=== PATIENT | female | born 1990 | race Caucasian/White ===

== ENCOUNTER → 2016-08-10 | Outpatient (REF) | payer OTHER ==
[~2016-08-10] MED LIST: ACET50TA PO; ANUS2.5C2 TOP; APRI0.37 PO; CIPR500T89 PO; DOCU10ELUD PO; EUCECRE3 TOP; FLAG500T PO; IBUP600T26 PO; MEDR1VL IM; MILKSUS OR; MOM30SS PO; NORCOTAB PO; PRED10TA PO
[2016-08-10 16:04] LABS: ALBUMIN 3.6 GM/DL (3.2-5.2); ALBUMIN/GLOBULIN RATIO 1.03 (1.00-1.93); ALKALINE PHOSPHATASE 56 U/L (45-117); ALT/SGPT 15 U/L (12-78); ANION GAP 10 MEQ/L (8-16); AST/SGOT 12 U/L (15-37); BILIRUBIN,TOTAL 0.2 MG/DL (0.2-1.0); BLOOD UREA NITROGEN 14 MG/DL (7-18); CALCIUM LEVEL 8.3 MG/DL (8.5-10.1); CARBON DIOXIDE LEVEL 23 MEQ/L (21-32); CHLORIDE LEVEL 108 MEQ/L (98-107); CREATININE FOR GFR 0.72 MG/DL (0.55-1.02); GLOMERULAR FILTRATION RATE > 60.0 (>60); GLUCOSE, FASTING 102 MG/DL (70-105); POTASSIUM SERUM 3.7 MEQ/L (3.5-5.1); SODIUM LEVEL 141 MEQ/L (136-145); TOTAL PROTEIN 7.1 GM/DL (6.4-8.2)
[2016-08-10 16:05] LABS: MEAN CORPUSCULAR HEMOGLOBIN 31.3 pg (27.0-33.0); MEAN CORPUSCULAR HGB CONC 33.6 g/dl (32.0-36.5); RED CELL DISTRIBUTION WIDTH 12.6 % (11.5-14.5); WHITE BLOOD COUNT 8.2 K/mm3 (4.0-10.0)
== END ==
LOC: M LABDRAW1 15:36
PROVIDERS: ATTEND Internal Medicine Gastroenterology
DX: K51.90 Ulcerative colitis, unspecified, without complications (principal); K60.2 Anal fissure, unspecified; D64.9 Anemia, unspecified; K59.1 Functional diarrhea; Z80.0 Family history of malignant neoplasm of digestive organs; M19.93 Secondary osteoarthritis, unspecified site

== ENCOUNTER 2016-10-02 13:51 | Emergency (ER) | payer OTHER ==
[~2016-10-02] VITALS: Ht 157.5 cm; Wt 85.3 kg
[~2016-10-02 13:51] MED LIST changes: +CIPR-249 PO; -CIPR500T89 PO
[2016-10-02 13:52] VITALS: BP 123/74
[2016-10-02] MEDS ORDERED: CYCL10TA PO (14:38)
[2016-10-02] MEDS ORDERED: IBUP80TA PO (14:38)
== END 2016-10-02 14:52 | disposition home or self-care (01) ==
LOC: M ED 13:51
DX: S16.1XXA Strain of muscle, fascia and tendon at neck level, initial encounter (principal); M43.6 Torticollis; X58.XXXA Exposure to other specified factors, initial encounter; Y92.9 Unspecified place or not applicable; Y93.9 Activity, unspecified; Y99.9 Unspecified external cause status; Z79.3 Long term (current) use of hormonal contraceptives

== ENCOUNTER 2017-05-03 09:24 | Emergency (ER) | payer OTHER ==
[2017-05-03 10:24] LABS: BASO # 0.1 10^3/uL (0.0-0.2); BASO % 0.4 % (0.0-1.0); EOS # 0.2 10^3/uL (0.0-0.50); EOS % 1.1 % (0.0-3.0); HEMATOCRIT 39.7 % (36.0-47.0); HEMOGLOBIN 13.2 g/dl (12.0-16.0); IMMATURE GRANULOCYTE % 0.3 % (0-0); LYMPH # 1.9 10^3/uL (1.5-6.5); LYMPH % 13.8 % (24.0-44.0); MEAN CORPUSCULAR HEMOGLOBIN 30.3 pg (27.0-33.0); MEAN CORPUSCULAR HGB CONC 33.2 g/dl (32.0-36.5); MEAN CORPUSCULAR VOLUME 91.3 fl (80.0-96.0); MONO # 0.7 10^3/uL (0.0-0.8); MONO % 5.3 % (0.0-5.0); NEUTROPHILS # 10.9 10^3/uL (1.8-7.7); NEUTROPHILS % 79.1 % (36.0-66.0); PLATELET COUNT, AUTOMATED 233 10^3/uL (150-450); RED BLOOD COUNT 4.35 10^6/uL (4.00-5.40); RED CELL DISTRIBUTION WIDTH 12.8 % (11.5-14.5); WHITE BLOOD COUNT 13.8 10^3/uL (4.0-10.0)
[2017-05-03 11:15] LABS: HCG, SERUM QUANTITATIVE 10515 MIU/ML
[2017-05-03 11:26] LABS: KETONE, URINE AUTO RFX NEGATIVE (NEGATIVE); LEUKOCYTE ESTERASE UR AUTO RFX 1+ (NEGATIVE); MUCUS, URINE RFX SMALL (NEGATIVE); NITRITE, URINE AUTO RFX NEGATIVE (NEGATIVE); RBC, URINE AUTO RFX 5 /HPF (0-3); SPECIFIC GRAVITY UR AUTO RFX 1.023 (1.002-1.035); SQUAM EPITHELIAL CELL UR AURFX 5 /HPF (0-6); WBC, URINE AUTO RFX 2 /HPF (0-3)
== END 2017-05-03 12:54 | disposition home or self-care (01) ==
LOC: M ED 09:24
DX: O20.8 Other hemorrhage in early pregnancy (principal); Z3A.01 Less than 8 weeks gestation of pregnancy
CPT/HCPCS: 76801

== ENCOUNTER 2017-05-06 13:12 | Emergency (ER) | payer OTHER | END 2017-05-06 15:56 | disposition home or self-care (01) | LOC: M ED 13:12 | DX: J02.0 Streptococcal pharyngitis (principal); Z20.9 Contact with and (suspected) exposure to unspecified communicable disease; K52.9 Noninfective gastroenteritis and colitis, unspecified; K50.919 Crohn's disease, unspecified, with unspecified complications | CPT/HCPCS: 87880 ==

== ENCOUNTER → 2017-05-14 | Outpatient (REF) | payer OTHER ==
[2017-05-14 13:24] LABS: HEMATOCRIT 36.9 % (36.0-47.0); HEMOGLOBIN 12.4 g/dl (12.0-16.0); MEAN CORPUSCULAR HEMOGLOBIN 30.3 pg (27.0-33.0); MEAN CORPUSCULAR HGB CONC 33.6 g/dl (32.0-36.5); MEAN CORPUSCULAR VOLUME 90.2 fl (80.0-96.0); PLATELET COUNT, AUTOMATED 247 10^3/uL (150-450); RED BLOOD COUNT 4.09 10^6/uL (4.00-5.40); RED CELL DISTRIBUTION WIDTH 12.4 % (11.5-14.5); WHITE BLOOD COUNT 9.2 10^3/uL (4.0-10.0)
[2017-05-14 14:13] LABS: RUBELLA IgG QUALITATIVE IMMUNE (IMMUNE)
[2017-05-14 14:14] LABS: HEPATITIS B SURFACE ANTIGEN NEGATIVE (NEGATIVE)
[2017-05-14 14:42] LABS: HIV 1&2 SCREEN CENTAUR NEGATIVE (NEGATIVE)
[2017-05-14 14:46] LABS: CHLAMYDIA DNA AMPLIFICATION POSITIVE (NEGATIVE); GC DNA AMPLIFICATION NEGATIVE (NEGATIVE)
[2017-05-14 15:32] LABS: HCG, SERUM QUANTITATIVE 45079 MIU/ML
== END ==
LOC: M LAB REF 13:03
DX: Z3A.01 Less than 8 weeks gestation of pregnancy (principal)

== ENCOUNTER 2017-07-24 11:55 | Emergency (ER) | payer OTHER ==
[2017-07-24 12:49] LABS: BASO % 0.2 % (0.0-1.0); EOS # 0.1 10^3/uL (0.0-0.50); EOS % 1.4 % (0.0-3.0); HEMATOCRIT 36.2 % (36.0-47.0); HEMOGLOBIN 12.2 g/dl (12.0-15.5); IMMATURE GRANULOCYTE % 0.5 % (0-3.0); LYMPH # 1.6 10^3/uL (1.5-6.5); LYMPH % 17.6 % (24.0-44.0); MEAN CORPUSCULAR HEMOGLOBIN 30.7 pg (27.0-33.0); MEAN CORPUSCULAR HGB CONC 33.7 g/dl (32.0-36.5); MONO # 0.8 10^3/uL (0.0-0.8); MONO % 8.3 % (0.0-5.0); NEUTROPHILS # 6.6 10^3/uL (1.8-7.7); PLATELET COUNT, AUTOMATED 212 10^3/uL (150-450); RED BLOOD COUNT 3.98 10^6/uL (4.00-5.40); RED CELL DISTRIBUTION WIDTH 13.2 % (11.5-14.5); WHITE BLOOD COUNT 9.2 10^3/uL (4.0-10.0)
[2017-07-24] MEDS: ONDANSETRON 4MG/2ML VIAL (J2405) IV (12:49)
[2017-07-24] MEDS: NS 1,000 ML IV (12:49)
[2017-07-24 12:58] LABS: KETONE, URINE AUTO RFX 1+ mg/dL (NEGATIVE); MUCUS, URINE RFX SMALL (NEGATIVE); NITRITE, URINE AUTO RFX NEGATIVE (NEGATIVE); RBC, URINE AUTO RFX 3 /HPF (0-3); SPECIFIC GRAVITY UR AUTO RFX 1.013 (1.002-1.035); SQUAM EPITHELIAL CELL UR AURFX 6 /HPF (0-6); WBC, URINE AUTO RFX 1 /HPF (0-3)
[2017-07-24 13:01] LABS: LEUKOCYTE ESTERASE UR AUTO RFX 1+ (NEGATIVE)
[2017-07-24 13:08] LABS: ALBUMIN/GLOBULIN RATIO 0.67 (1.00-1.93); ALKALINE PHOSPHATASE 40 U/L (45-117); ALT/SGPT 12 U/L (12-78); ANION GAP 8 MEQ/L (8-16); AST/SGOT 13 U/L (7-37); BILIRUBIN,DIRECT < 0.1 MG/DL (0.0-0.2); BILIRUBIN,TOTAL 0.3 MG/DL (0.2-1.0); BLOOD UREA NITROGEN 4 MG/DL (7-18); CALCIUM LEVEL 8.7 MG/DL (8.5-10.1); CARBON DIOXIDE LEVEL 25 MEQ/L (21-32); CHLORIDE LEVEL 106 MEQ/L (98-107); CREATININE FOR GFR 0.51 MG/DL (0.55-1.30); GLOMERULAR FILTRATION RATE > 60.0 (>60); GLUCOSE, FASTING 84 MG/DL (70-100); LIPASE 77 U/L (73-393); POTASSIUM SERUM 3.5 MEQ/L (3.5-5.1); SODIUM LEVEL 139 MEQ/L (136-145); TOTAL PROTEIN 7.5 GM/DL (6.4-8.2)
== END 2017-07-24 13:57 | disposition home or self-care (01) ==
LOC: M ED 11:55
DX: O98.512 Other viral diseases complicating pregnancy, second trimester (principal); A08.4 Viral intestinal infection, unspecified; O99.62 Diseases of the digestive system complicating childbirth; K50.90 Crohn's disease, unspecified, without complications; Z20.828 Contact with and (suspected) exposure to other viral communicable diseases; Z3A.17 17 weeks gestation of pregnancy
CPT/HCPCS: J2405

== ENCOUNTER → 2017-10-05 | Outpatient (CLI) | payer OTHER ==
[2017-10-05 16:19] LABS: HEMATOCRIT 32.3 % (36.0-47.0); HEMOGLOBIN 10.7 g/dl (12.0-15.5); MEAN CORPUSCULAR HEMOGLOBIN 29.4 pg (27.0-33.0); MEAN CORPUSCULAR HGB CONC 33.1 g/dl (32.0-36.5); MEAN CORPUSCULAR VOLUME 88.7 fl (80.0-96.0); PLATELET COUNT, AUTOMATED 240 10^3/uL (150-450); RED BLOOD COUNT 3.64 10^6/uL (4.00-5.40); RED CELL DISTRIBUTION WIDTH 13.4 % (11.5-14.5); WHITE BLOOD COUNT 8.9 10^3/uL (4.0-10.0)
[2017-10-05 17:10] LABS: GLUCOSE CHALLENGE TEST 1 HOUR 155 MG/DL (LESS THAN 140)
== END ==
LOC: M LAB 14:49
DX: Z36.89 Encounter for other specified antenatal screening (principal)
CPT/HCPCS: 82950

== ENCOUNTER → 2017-10-11 | Outpatient (CLI) | payer OTHER ==
[2017-10-11 07:52] LABS: GLUCOSE, FASTING 86 MG/DL (LESS THAN 95)
[2017-10-11 09:01] LABS: 1 HR GLUCOSE 150 MG/DL (LESS THAN 180)
[2017-10-11 10:07] LABS: 2 HR GLUCOSE 157 MG/DL (LESS THAN 155)
[2017-10-11 11:12] LABS: 3 HR GLUCOSE 111 MG/DL (LESS THAN 140)
== END ==
LOC: M LAB 07:02
DX: R73.02 Impaired glucose tolerance (oral) (principal)
CPT/HCPCS: 82951

== ENCOUNTER → 2017-12-02 | Outpatient (REF) | payer OTHER | LOC: M LAB REF 12-03 13:12 | DX: O09.213 Supervision of pregnancy with history of pre-term labor, third trimester (principal) ==

== ENCOUNTER 2017-12-04 16:29 | Outpatient (CLI) | payer OTHER | END 2017-12-04 17:59 | disposition home or self-care (01) | LOC: M LDO 16:29 | DX: O36.8130 Decreased fetal movements, third trimester, not applicable or unspecified (principal); Z3A.36 36 weeks gestation of pregnancy | CPT/HCPCS: 59025 ==

== ENCOUNTER → 2018-05-24 | Outpatient (CLI) | payer OTHER ==
[~2018-05-24] MED LIST changes: +AMOX875T PO; +COLA100C5 PO; +CYCL10TA PO; +IBUP80TA PO; +MAPA500T2 PO; +NORC1TAB4 PO; +PERCOCET PO; +PRENTAB9 PO; +ZOFR4TAB14 PO
[2018-05-24 11:52] LABS: HEMATOCRIT 36.7 % (36.0-47.0); HEMOGLOBIN 11.3 g/dl (12.0-15.5); MEAN CORPUSCULAR HEMOGLOBIN 28.3 pg (27.0-33.0); MEAN CORPUSCULAR HGB CONC 30.8 g/dl (32.0-36.5); MEAN CORPUSCULAR VOLUME 91.8 fl (80.0-96.0); PLATELET COUNT, AUTOMATED 277 10^3/uL (150-450); WHITE BLOOD COUNT 6.6 10^3/uL (4.0-10.0)
[2018-05-24 12:58] LABS: ALBUMIN 3.5 GM/DL (3.2-5.2); ALT/SGPT 18 U/L (12-78); BILIRUBIN,TOTAL 0.7 MG/DL (0.2-1.0); BLOOD UREA NITROGEN 10 MG/DL (7-18); C REACTIVE PROTEIN QUANTITATIV < 0.30 MG/DL (0.00-0.30); CALCIUM LEVEL 8.3 MG/DL (8.5-10.1); CARBON DIOXIDE LEVEL 24 MEQ/L (21-32); CHLORIDE LEVEL 105 MEQ/L (98-107); CREATININE FOR GFR 0.74 MG/DL (0.55-1.30); GLOMERULAR FILTRATION RATE > 60.0 (>60); GLUCOSE, FASTING 94 MG/DL (70-100); POTASSIUM SERUM 3.9 MEQ/L (3.5-5.1); SODIUM LEVEL 138 MEQ/L (136-145); TOTAL PROTEIN 7.6 GM/DL (6.4-8.2)
== END ==
LOC: M LAB 11:02
PROVIDERS: ATTEND Internal Medicine Gastroenterology
DX: K51.90 Ulcerative colitis, unspecified, without complications (principal); K59.1 Functional diarrhea; R10.9 Unspecified abdominal pain

== ENCOUNTER → 2018-09-30 | Outpatient (REF) | payer OTHER ==
[~2018-09-30] MED LIST changes: -ACET50TA PO; -DOCU10ELUD PO; +DOCU5LIQ PO; +HYDR-3715 PO; +MAPA500T17 PO; -NORC1TAB4 PO; +NORC1TAB7 PO; -NORCOTAB PO; +PRED-351 PO; -PRED10TA PO
== END ==
LOC: M LAB REF 16:22
PROVIDERS: ATTEND Physician Assistant
DX: J02.9 Acute pharyngitis, unspecified (principal)

== ENCOUNTER 2019-02-11 11:27 | Emergency (ER) | payer OTHER ==
[~2019-02-11] VITALS: Ht 157.5 cm; Wt 79.1 kg
[2019-02-11] MEDS ORDERED: CEFD1CAP8 (11:31)
[2019-02-11] MEDS ORDERED: METH4TAB28 PO (11:31)
[2019-02-11 12:25] LABS: HEMATOCRIT 38.4 % (36.0-47.0); HEMOGLOBIN 12.3 g/dl (12.0-15.5); MEAN CORPUSCULAR HEMOGLOBIN 29.4 pg (27.0-33.0); MEAN CORPUSCULAR VOLUME 91.6 fl (80.0-96.0); PLATELET COUNT, AUTOMATED 334 10^3/uL (150-450); RED BLOOD COUNT 4.19 10^6/uL (4.00-5.40); WHITE BLOOD COUNT 10.4 10^3/uL (4.0-10.0)
[2019-02-11 12:39] LABS: INR 1.07; PROTHROMBIN TIME 13.6 SECONDS (11.8-14.0)
[2019-02-11 12:40] LABS: PARTIAL THROMBOPLASTIN TIME 28.8 SECONDS (25.0-38.4)
[2019-02-11 12:41] LABS: ALBUMIN 3.4 GM/DL (3.2-5.2); ALT/SGPT 12 U/L (12-78); BILIRUBIN,DIRECT < 0.1 MG/DL (0.0-0.2); BILIRUBIN,TOTAL 0.4 MG/DL (0.2-1.0); BLOOD UREA NITROGEN 11 MG/DL (7-18); CALCIUM LEVEL 9.2 MG/DL (8.5-10.1); CARBON DIOXIDE LEVEL 31 MEQ/L (21-32); CHLORIDE LEVEL 103 MEQ/L (98-107); CREATININE FOR GFR 0.68 MG/DL (0.55-1.30); GLOMERULAR FILTRATION RATE > 60.0 (>60); GLUCOSE, FASTING 90 MG/DL (70-100); LIPASE 105 U/L (73-393); POTASSIUM SERUM 3.9 MEQ/L (3.5-5.1); SODIUM LEVEL 139 MEQ/L (136-145); TOTAL PROTEIN 7.4 GM/DL (6.4-8.2)
[2019-02-11 13:00] LABS: EOSINOPHILS 1 % (0-3); LYMPHOCYTES 34 % (16-44); MONOCYTES 3 % (0-5); NEUTROPHILS 49 % (28-66)
[2019-02-11 13:01] LABS: PLATELET ESTIMATE NORMAL (NORMAL)
[2019-02-11] MEDS ORDERED: NS 1,000 ML IV ONE (13:30)
[2019-02-11] MEDS ORDERED: ONDANSETRON 4MG/2ML VIAL (J2405) IV ONE (13:30)
[2019-02-11] MEDS ORDERED: ISOVUE-370 76% 100ML VIAL (Q9967) As Ordered ONE (13:42)
--- NOTE | 2019-02-11 14:41 | REP ---
CT ABDOMEN/PELVIS WITH IV BUT WITHOUT ORAL CONTRAST: HISTORY: Abdomen pain. Blood in the stool. Diarrhea. The patient gives a history of Crohn disease. COMPARISON: CT study October 09, 2014. CT CONTRAST DOSE: 100 mL of intravenous Isovue-370. CT FINDINGS: Digital preliminary apprentice jockey radiograph demonstrates an unremarkable bowel gas pattern. Lung bases are clear on axial CT images. The liver and the spleen are normal in size and homogeneous in texture. No focal hepatic lesion is seen. No abnormalities noted in the gallbladder or pancreas. No adrenal lesion is seen. There are scattered mesenteric lymph nodes in the left upper quadrant and in the small bowel mesentery. The largest of these is adjacent to the splenic flexure of the colon measuring 13 mm in short-axis dimension. One or two of these lymph nodes are a little larger than they were in 2015. Today's study again demonstrates moderate mural thickening involving the colon from the hepatic flexure through the transverse colon and descending colon. There is some mural thickening and hyper-enhancement extending through the rectum as well. This is consistent with inflammatory or infectious enterocolitis. A similar pattern was observed previously. The small intestinal loops are unremarkable. There are tubal ligation clamps in the pelvis. There is a small cyst in the right ovary measuring 3.4 cm in greatest diameter. No uterine mass is seen. No free fluid or free air is seen. No abdominal wall defect is observed. A normal appendix is seen in the right lower quadrant. IMPRESSION: Enterocolitis pattern involving the colon consistent with inflammatory or infectious enterocolitis. Electronically Signed by Xander Machuca MD 02/11/2019 05:04 P
[2019-02-11] MEDS ORDERED: PRED10TA2 PO (15:28)
[2019-02-11 15:36] VITALS: BP 127/70
== END 2019-02-11 15:37 | disposition home or self-care (01) ==
LOC: M ED 11:27
DX: K50.10 Crohn's disease of large intestine without complications (principal); Z79.899 Other long term (current) drug therapy
CPT/HCPCS: 74177; 80048; 80076; 81001; 82270; 83630; 83690; 84702; 85025; 85610; 85730; 86850; 86900; 86901; 87086; 87507; 96361; 96374; 99284; J2405; Q9967

== ENCOUNTER 2019-02-15 02:03 | Inpatient (IN) | payer OTHER ==
[~2019-02-15] VITALS: Ht 157.5 cm; Wt 79.4 kg
[~2019-02-15 02:03] MED LIST changes: +CEFD1CAP8; +METH4TAB28 PO; +PRED10TA2 PO
[2019-02-15] MEDS ORDERED: APRI0.37 PO ×2 (02:06→05:01)
[2019-02-15] MEDS ORDERED: NS 1,000 ML IV ONE (03:00)
[2019-02-15 03:10] LABS: HEMATOCRIT 39.6 % (36.0-47.0); HEMOGLOBIN 12.5 g/dl (12.0-15.5); MEAN CORPUSCULAR HEMOGLOBIN 29.2 pg (27.0-33.0); MEAN CORPUSCULAR HGB CONC 31.6 g/dl (32.0-36.5); MEAN CORPUSCULAR VOLUME 92.5 fl (80.0-96.0); PLATELET COUNT, AUTOMATED 363 10^3/uL (150-450); RED BLOOD COUNT 4.28 10^6/uL (4.00-5.40); WHITE BLOOD COUNT 12.1 10^3/uL (4.0-10.0)
[2019-02-15] MEDS ORDERED: dexameTHASONE 20 MG/5 ML VIAL (J1100) IV ONE (03:15)
[2019-02-15 03:33] LABS: BLOOD UREA NITROGEN 12 MG/DL (7-18); CALCIUM LEVEL 8.6 MG/DL (8.5-10.1); CARBON DIOXIDE LEVEL 30 MEQ/L (21-32); CHLORIDE LEVEL 104 MEQ/L (98-107); GLOMERULAR FILTRATION RATE > 60.0 (>60); GLUCOSE, FASTING 105 MG/DL (70-100); POTASSIUM SERUM 3.1 MEQ/L (3.5-5.1); SODIUM LEVEL 139 MEQ/L (136-145)
[2019-02-15 03:50] LABS: LYMPHOCYTES 42 % (16-44); MONOCYTES 6 % (0-5); NEUTROPHILS 45 % (28-66)
[2019-02-15 03:51] LABS: PLATELET ESTIMATE NORMAL (NORMAL)
[2019-02-15] MEDS ORDERED: ONDANSETRON 4MG/2ML VIAL (J2405) IV ONE (04:15)
[2019-02-15] MEDS ORDERED: MORPHINE 2 MG/ML 1ML VIAL (J2270) IV ONE (04:15)
[2019-02-15] MEDS ORDERED: PRED10TA2 PO (05:01)
[2019-02-15] MEDS ORDERED: TYLETAB14 PO (05:01)
[2019-02-15 05:19] LABS: ALT/SGPT 11 U/L (12-78); BILIRUBIN,DIRECT < 0.1 MG/DL (0.0-0.2); BILIRUBIN,TOTAL 0.4 MG/DL (0.2-1.0)
[2019-02-15 05:30] LABS: C REACTIVE PROTEIN QUANTITATIV 6.08 MG/DL (0.00-0.30)
--- NOTE | 2019-02-15 05:31 | HPEPDOC ---
General Date of Admission 02/15/19 Date of Service: Feb 15, 2019 Chief Complaint The patient is a 28-year-old female admitted with a reason for visit of Dizziness. Source: Patient Exam Limitations: No limitations Timing/Duration: Week(s) Severity: Moderate Associated Symptoms: Nausea, Weakness History of Present Illness Patient is 28 years old female with past medical history of Crohn diseases presented to the hospital with multiple episodes of diarrhea with blood. Patient stated that she has been having bloody diarrhea for past 3 weeks, multiple episodes daily. Patient stated that she was on steroids and mesalamine as treatment of Crohn, however it did not alleviate her symptoms. Patient denied fever, chills, vomiting, shortness of breath, palpitations, dysuria On 02/11/2019 patient was in the emergency room with the same complaints, abdominal CT was done and showed colitis involving the colon consistent with inflammatory or infectious enterocolitis. In emergency room patient was found to have leukocytosis of 12.1, hemoglobin of 12.5, potassium 3.1. Vital signs showed hypotension of 97/52 with tachycardia. Home Medications Scheduled Mesalamine (Apriso) 0.375 Gm Cap.er.24h, 4 CAP PO DAILY, (Reported) Prednisone (Prednisone) 10 Mg Tablet, 10 MG PO TAPER, (Reported) 40MG DAILY FOR 1 WEEK, THEN 30MG DAILY FOR 1 WEEK, THEN 20MG DAILY FOR 1 WEEK, THEN 10MG DAILY FOR ONE WEEK Scheduled PRN Acetaminophen with Codeine (Tylenol with Codeine #3 Tablet) 1 Each Tablet, 1 TAB PO Q6H PRN for PAIN, (Reported) Allergies Coded Allergies: No Known Allergies (Verified , 02/15/19) Past Medical History Medical History Crohn diseases Surgical History Family History Mother has peptic ulcer, grandmother from colon cancer Social History * Smoker: Denies Alcohol: Denies Drugs: denies A-FIB/CHADSVASC A-FIB History Current/History of A-Fib/PAF?: No Current PO Anticoag Therapy: No Review of Systems Constitutional: Reports: Malaise, Weakness, Weight Loss Eyes: Denies: Pain, Vision change ENT: Reports: Head Aches; Denies: Ear Pain Skin: Denies: Rash, Lesions Pulmonary: Denies: Dyspnea, Cough Cardiovascular: Denies: Chest Pain, Palpitations Gastrointestinal: Reports: Nausea, Abdominal Pain, Hematochezia Genitourinary: Denies: Dysuria, Frequency Hematologic: Denies: Bruising, Bleeding Excessively Endocrine: Denies: Polydipsia, Polyphagia Musculoskeletal: Denies: Neck Pain, Back Pain Neurological: Denies: Weakness, Numbness Psych: Denies: Mood Normal Physical Examination General Exam: Positive: Alert, Cooperative Eye Exam: Positive: PERRLA, Conjunctiva & lids normal ENT Exam: Positive: Atraumatic; Negative: Mucous membr. moist/pink Neck Exam: Positive: Supple; Negative: JVD Heart Exam: Positive: Tachycardic, Regular Rhythm; Negative: Rate Normal Abdomen Exam: Positive: BS Hyperactive, Soft, Tenderness (diffuse tenderness no rebound); Negative: Normal bowel sounds Extremity Exam: Negative: Clubbing Skin Exam: Negative: Rash, Breakdown Neuro Exam: Positive: Strength at 5/5 X4 ext, Cranial Nerves 3-12 NL Psych Exam: Positive: Mental status NL Vital Signs Vital Signs Date Time Temp Pulse Resp B/P (MAP) Pulse Ox O2 Delivery O2 Flow Rate FiO2 02/15/19 04:45 97/53 (68) 02/15/19 04:30 107 18 97 Room Air 02/15/19 02:03 97.8 Laboratory Data Labs 24H Laboratory Tests 2 02/15/19 03:01: Nucleated Red Blood Cells % (auto) 0.4H, Neutrophils 45, Band Neutrophils 7, Lymphocytes (Manual) 42, Monocytes (Manual) 6H, Red Blood Cell Morphology NORMAL, Platelet Estimate NORMAL, Anion Gap 5L, Glomerular Filtration Rate > 60.0, Calcium Level 8.6 CBC/BMP Laboratory Tests 02/15/19 03:01 Assessment/Plan Patient is 28 years old female with past medical history of Crohn diseases presented hospital with multiple episodes of diarrhea with blood. Patient stated that she has been having bloody diarrhea for past 3 weeks, multiple episodes daily. Patient was diagnosed with Crohn exacerbation Problems (1) Exacerbation of Crohn's disease Status: Acute Problem Text: Most likely patient developed flare up of Crohn diseases On the abdominal exam abdomen is soft, no rigidity, patient is afebrile Previous CT of abdomen which was done on 02/11/19 did not show any obstruction or perforation I will start prednisone 40 mg daily, continue mesalamine Augmentin in order to prevent bacterial translocation Consider director of payroll consult in the morning Most likely patient will need immunomodulation therapy. Clear liquid diet IV fluid (2) Electrolyte imbalance Status: Acute Problem Text: Secondary to diarrhea Potassium replaced (3) Dehydration Status: Acute Problem Text: Secondary to multiple episodes of diarrhea IV fluid Plan / VTE VTE Prophylaxis Ordered?: Yes CHERRI HOGUE DO Feb 15, 2019 05:31
[2019-02-15 05:41] LABS: ERYTHROCYTE SEDIMENTATION RATE 46 mm/hr (0-20)
[2019-02-15 05:50] VITALS: BP 105/54
[2019-02-15] MEDS ORDERED: AUGMENTIN 875 MG TAB PO ONE (06:00)
[2019-02-15] MEDS: KCL 40MEQ IN D5/NS 1000ML 1,000 ML IV SCH ×3 (06:25→20:46)
[2019-02-15 07:06] LABS: INR 1.18; PROTHROMBIN TIME 14.8 SECONDS (11.8-14.0)
[2019-02-15] MEDS: HEPARIN SOD (PORCINE) 5000 UNITS/ML VIAL SQ SCH ×2 (08:30→20:46)
[2019-02-15] MEDS: predniSONE 20 MG TAB PO SCH (08:30)
[2019-02-15] MEDS: MESALAMINE 400 MG CAPSULE DELAYED RELEASE (DELZICOL) PO SCH (08:30)
[2019-02-15] MEDS ORDERED: HEPARIN SOD (PORCINE) 5000 UNITS/ML VIAL SQ SCH (09:00)
[2019-02-15] MEDS ORDERED: ONDANSETRON 4MG/2ML VIAL (J2405) IV PRN (11:15)
[2019-02-15] MEDS: MORPHINE 4 MG/ML 1ML VIAL/SYRINGE (J2270) IV PRN ×3 (14:16→22:54)
[2019-02-15 20:06] VITALS: BP 120/54
[2019-02-15] MEDS: AUGMENTIN 875 MG TAB PO SCH (20:45)
[2019-02-16] MEDS: MORPHINE 4 MG/ML 1ML VIAL/SYRINGE (J2270) IV PRN ×2 (03:43→07:51)
[2019-02-16] MEDS: KCL 40MEQ IN D5/NS 1000ML 1,000 ML IV SCH (05:54)
[2019-02-16 06:00] VITALS: BP 100/40
--- NOTE | 2019-02-16 07:26 | IPNPDOC ---
Date Seen The patient was seen on 02/16/19. Progress Note SUBJECTIVE: Patient is a -year-old [RACE] [GENDER] with OBJECTIVE PHYSICAL EXAMINATION: VITAL SIGNS: Please see below. GENERAL: HEENT: CARDIOVASCULAR: . RESPIRATORY: . ABDOMINAL: EXTREMITIES: NEUROLOGICAL: PSYCHOLOGICAL: LABORATORY DATA, IMAGING STUDIES, MICROBIOLOGY: Please see below. Echocardiogram: . DVT prophylaxis ordered?: ASSESSMENT AND PLAN: This is a -year-old [RACE] [GENDER] with . PROBLEMS: 1. : . 2. : . 3. : . DISPOSITION: . VS, I&O, 24H, Fishbone Vital Signs/I&O Vital Signs Date Time Temp Pulse Resp B/P (MAP) Pulse Ox O2 Delivery O2 Flow Rate FiO2 02/16/19 06:00 98.2 66 18 100/40 (60) 99 Room Air I&O- Last 24 Hours up to 6 AM 02/16/19 06:00 Intake Total 2640 ml Output Total 200 ml Balance 2440 ml UMAIR HARPER MD Feb 16, 2019 07:26
[2019-02-16] MEDS ORDERED: POTASSIUM CHLORIDE 10 MEQ SR TABLET PO ONE (08:00)
[2019-02-16 08:20] LABS: HEMATOCRIT 32.9 % (36.0-47.0); HEMOGLOBIN 10.3 g/dl (12.0-15.5); MEAN CORPUSCULAR HEMOGLOBIN 29.3 pg (27.0-33.0); MEAN CORPUSCULAR HGB CONC 31.3 g/dl (32.0-36.5); MEAN CORPUSCULAR VOLUME 93.7 fl (80.0-96.0); PLATELET COUNT, AUTOMATED 305 10^3/uL (150-450); RED BLOOD COUNT 3.51 10^6/uL (4.00-5.40); WHITE BLOOD COUNT 10.4 10^3/uL (4.0-10.0)
[2019-02-16] MEDS: AUGMENTIN 875 MG TAB PO SCH (08:50)
[2019-02-16] MEDS: predniSONE 20 MG TAB PO SCH (08:50)
[2019-02-16 08:53] LABS: BLOOD UREA NITROGEN 4 MG/DL (7-18); CALCIUM LEVEL 7.6 MG/DL (8.5-10.1); CARBON DIOXIDE LEVEL 26 MEQ/L (21-32); CHLORIDE LEVEL 113 MEQ/L (98-107); CREATININE FOR GFR 0.68 MG/DL (0.55-1.30); GLOMERULAR FILTRATION RATE > 60.0 (>60); GLUCOSE, FASTING 104 MG/DL (70-100); MAGNESIUM LEVEL 1.7 MG/DL (1.8-2.4); POTASSIUM SERUM 3.7 MEQ/L (3.5-5.1); SODIUM LEVEL 145 MEQ/L (136-145)
[2019-02-16] MEDS: MESALAMINE 400 MG CAPSULE DELAYED RELEASE (DELZICOL) PO SCH (08:53)
[2019-02-16] MEDS: HEPARIN SOD (PORCINE) 5000 UNITS/ML VIAL SQ SCH (08:53)
[2019-02-16] MEDS ORDERED: PRED10TA2 PO (11:54)
[2019-02-16] MEDS ORDERED: OXYC1TAB23 PO (11:54)
--- NOTE | 2019-02-16 11:57 | DS.PDOC ---
Discharge Summary General Date of Admission Feb 15, 2019 at 04:51 Date of Discharge 02/16/19 Discharge Summary PROCEDURES PERFORMED DURING STAY: None. ADMITTING DIAGNOSES: 1. Crohn's exacerbation. DISCHARGE DIAGNOSES: 1. Crohn's exacerbation. COMPLICATIONS/CHIEF COMPLAINT: Exacerbation Of Crohns Disease. HISTORY OF PRESENT ILLNESS and Hospital course: Patient is 28 yoF with PMH of Crohn diseases presented hospital with multiple episodes of diarrhea with blood, positive Hemoccult on 02/11/2019 and recently dx with Crohn exacerbation, diarrhea, dehydration and abdominal pain. Her leukocytosis improved during hospitalization, and was started on prednisone 40 mg daily, home mesalamine was continued. She was also empirically started on Augmentin in order to prevent bacterial translocation, had a couple doses, but was not continued at discharge. She tolerated clear diet and was advanced. Pin Pusher was not consulted due to improvement in symptoms. Patients pain was controlled with morphine, has a history of Percocet intake, was discharged on #15 of Percocet 5-325 q8h prn. Since bowel movements were less symptomatic, she denies any lightheadedness, dizziness, or abdominal pain at discharge. I spoke with Dr. Arana and she recommended steroid taper and change in home dosing, she does have follow-up appointment in 2 weeks. All questions were answered. DISCHARGE MEDICATIONS: Please see below. ALLERGIES: Please see below. PHYSICAL EXAMINATION ON DISCHARGE: VITAL SIGNS: Please see below. GENERAL: Young female in no acute distress HEENT:. Normocephalic, atraumatic, moist mucous membranes NECK: no Cervical lymphadenopathy CARDIOVASCULAR EXAMINATION: S1, S2, no murmurs RESPIRATORY EXAMINATION:. Clear to auscultation bilaterally ABDOMINAL EXAMINATION:, Positive bowel sounds, nontender to palpation EXTREMITIES:. No edema SKIN:no Rashes NEUROLOGICAL EXAMINATION: Able to follow instructions without difficulty PSYCHIATRIC EXAMINATION:. Has capacity LABORATORY DATA: Please see below. PROGNOSIS: Good ACTIVITY: As tolerated. DIET: Regular diet DISCHARGE PLAN:. Home DISPOSITION: Home. DISCHARGE INSTRUCTIONS: 1. See above. ITEMS TO FOLLOWUP ON ON OUTPATIENT: 1. See above. DISCHARGE CONDITION: Stable. TIME SPENT ON DISCHARGE: 35minutes. Vital Signs/I&Os Vital Signs Date Time Temp Pulse Resp B/P (MAP) Pulse Ox O2 Delivery O2 Flow Rate FiO2 02/16/19 08:10 18 02/16/19 06:00 98.2 66 100/40 (60) 99 Room Air I&O- Last 24 Hours up to 6 AM 02/16/19 06:00 Intake Total 4040 ml Output Total 200 ml Balance 3840 ml Laboratory Data Labs 24H Laboratory Tests 2 02/16/19 07:42: Nucleated Red Blood Cells % (auto) 0.4H 02/16/19 07:43: Anion Gap 6L, Glomerular Filtration Rate > 60.0, Calcium Level 7.6L, Magnesium Level 1.7L CBC/BMP Laboratory Tests 02/16/19 07:42 02/16/19 07:43 Discharge Medications Scheduled Mesalamine (Apriso) 0.375 Gm Cap.er.24h, 4 CAP PO DAILY, (Reported) Prednisone (Prednisone) 10 Mg Tablet, 10 MG PO DAILY 40mg x1 week, then 30mg x1 week, then 20mg x1 week, then 10mg x1 week. Scheduled PRN Acetaminophen with Codeine (Tylenol with Codeine #3 Tablet) 1 Each Tablet, 1 TAB PO Q6H PRN for PAIN, (Reported) Oxycodone HCl/Acetaminophen (Oxycodone-Acetaminophen 5-325) 1 Each Tablet, 1 TAB PO TIDP PRN for pain Allergies Coded Allergies: No Known Allergies (Verified , 02/15/19) UMAIR HARPER MD Feb 16, 2019 11:57
== END 2019-02-16 16:09 | disposition home or self-care (01) | DRG 245 ==
LOC: M ED 02:03 → M ED INP 04:51 → M ED 05:32 → M MS4PR 05:50
PROVIDERS: ADMIT Internal Medicine; ATTEND Family Medicine
DX: K50.90 Crohn's disease, unspecified, without complications (principal); E86.0 Dehydration; Z79.899 Other long term (current) drug therapy; Z79.52 Long term (current) use of systemic steroids; D72.829 Elevated white blood cell count, unspecified

== ENCOUNTER 2019-02-21 04:59 | Inpatient (IN) | payer OTHER ==
[~2019-02-21] VITALS: Ht 157.5 cm; Wt 76.6 kg
[~2019-02-21 04:59] MED LIST changes: +OXYC1TAB23 PO; +TYLETAB14 PO
[2019-02-21 06:56] LABS: HEMATOCRIT 35.2 % (36.0-47.0); HEMOGLOBIN 11.2 g/dl (12.0-15.5); MEAN CORPUSCULAR HEMOGLOBIN 29.5 pg (27.0-33.0); MEAN CORPUSCULAR HGB CONC 31.8 g/dl (32.0-36.5); MEAN CORPUSCULAR VOLUME 92.6 fl (80.0-96.0); PLATELET COUNT, AUTOMATED 366 10^3/uL (150-450); WHITE BLOOD COUNT 8.3 10^3/uL (4.0-10.0)
[2019-02-21 07:11] LABS: EOSINOPHILS 2 % (0-3); LYMPHOCYTES 29 % (16-44); MONOCYTES 5 % (0-5); NEUTROPHILS 64 % (28-66)
[2019-02-21 07:12] LABS: PLATELET ESTIMATE NORMAL (NORMAL)
[2019-02-21] MEDS ORDERED: NS 1,000 ML IV ONE (07:15)
[2019-02-21] MEDS ORDERED: MORPHINE 4 MG/ML 1ML VIAL/SYRINGE (J2270) IV ONE (07:15)
[2019-02-21] MEDS ORDERED: ONDANSETRON 4MG/2ML VIAL (J2405) IV ONE (07:15)
[2019-02-21 07:24] LABS: ALBUMIN 2.1 GM/DL (3.2-5.2); ALT/SGPT 8 U/L (12-78); BILIRUBIN,DIRECT < 0.1 MG/DL (0.0-0.2); BILIRUBIN,TOTAL 0.4 MG/DL (0.2-1.0); LIPASE 46 U/L (73-393); TOTAL PROTEIN 5.8 GM/DL (6.4-8.2)
[2019-02-21 07:46] LABS: ERYTHROCYTE SEDIMENTATION RATE 60 mm/hr (0-20)
[2019-02-21] MEDS ORDERED: ISOVUE-370 76% 100ML VIAL (Q9967) As Ordered ONE (07:56)
[2019-02-21] MEDS: ENOXAPARIN 40 MG/0.4 ML SYRINGE (J1650) SC SCH (09:00)
[2019-02-21] MEDS: MORPHINE 4 MG/ML 1ML VIAL/SYRINGE (J2270) IV PRN ×2 (09:02→10:22)
--- NOTE | 2019-02-21 09:10 | REP ---
CT abdomen pelvis with IV but without oral contrast: History: Upper abdomen pain. Rule out perforation. History of Crohn disease. Comparison CT study February 11, 2019. CT contrast dose: 100 ml of intravenous Isovue 370. CT findings: Preliminary digital terrazzo journeyman radiograph demonstrates a normal bowel gas pattern. There are tubal ligation clamps, one in each side of the pelvis. The lung bases are clear on axial CT images. The liver and the spleen are normal in size homogeneous in texture. The gallbladder is unremarkable. No abnormality is noted in the pancreas. No adrenal lesion is seen on either side. Kidneys enhance symmetrically and are morphologically intact. Scattered small bowel mesenteric lymph nodes are again seen unchanged. No retroperitoneal mass or adenopathy is observed. A retroaortic left renal vein is observed. No uterine or ovarian abnormality is appreciated. No free fluid is seen. No abscess is appreciated. There is mural thickening moderate in degree affecting the colon similar to the prior study from February 11, 2019 extending from the region of the hepatic flexure to the rectum. This is consistent with an inflammatory or infectious enterocolitis as previously noted, including Crohn's disease and ulcerative colitis. Small intestine does not appear to be involved. There is no evidence of free air. Impression: Persistent enterocolitis picture involving the colon from hepatic flexure distally to the rectum. Post tubal ligation clamps. Scattered mesenteric lymph nodes which are stable. Electronically Signed by Xander Machuca MD 02/21/2019 09:01 A
[2019-02-21] MEDS ORDERED: methylPREDNISolone INJ 125 MG/2 ML VIAL (J2930) IV ONE (10:15)
[2019-02-21] MEDS ORDERED: PRED10TA2 PO (10:33)
[2019-02-21] MEDS ORDERED: metroNIDAZOLE 250 MG in IV 1 EA IV SCH (11:45)
[2019-02-21] MEDS ORDERED: ONDANSETRON 4 MG ORAL DISINTEGRATING TAB (Q0162 PER 1MG) PO PRN (12:30)
[2019-02-21] MEDS ORDERED: POTASSIUM CHLORIDE 10 MEQ SR TABLET PO ONE (12:30)
[2019-02-21 13:09] VITALS: BP 128/59
[2019-02-21] MEDS: CIPROFLOXACIN 400 MG in IV 1 EA IV SCH (13:23)
--- NOTE | 2019-02-21 13:31 | HPE ---
DATE OF ADMISSION: 02/21/2019 CHIEF COMPLAINT: Continued bloody stool, vomiting and lightheadedness. SENIOR GAME ADVISOR: Dr. Lilli Arana HISTORY OF PRESENT ILLNESS: This is a 28-year-old female with a past medical history significant for Crohn disease who was recently admitted to [facility] on 02/15/2019, last week and subsequently discharged on 02/16/2019. She states that she was discharged home with a steroid taper and Tylenol #3. She had previously been very anxious to get home, and states that she downplayed her pain in order to be discharged. Since then, she has continued with her abdominal pain, however has gotten worse. She also has continued with bloody bowel movements that have increased in duration since her previous discharge. She states that she spent all night on the toilet defecating blood that is bright red. She states she feels that the steroids are not working for her anymore. She tried to get a hold of Dr. Lilli Arana's office yesterday, however, she was not in. Her last colonoscopy was 3 years ago. She denies any new fevers, chills or night sweats. She does state that she has some burning chest pain that is located right over her epigastrium. She states she has not been able to eat anything, and started vomiting yesterday. Her past medical history is significant for Crohn disease. Home medications include: - prednisone taper - mesalamine (Apriso) 0.375 grams per capsule, 4 capsules by mouth daily - Tylenol #3 (which she ran out of yesterday) PAST FAMILY HISTORY: No one else in her family has Crohn disease, however, her mother and brother both have bowel issues. Otherwise, noncontributory. PAST SURGICAL HISTORY: Colonoscopy [address] Lilli Arana. (C) section x-3, the last one with tubal ligation. SOCIAL HISTORY: She denies smoking, alcohol or drug usage. She is a mother of four. REVIEW OF SYSTEMS: Denies fevers, chills, night sweats, or weight changes. Eyes: Denies visual changes, headache, floaters, double or blurry vision. Ear/Nose/Throat: Denies epistaxis, sinus pain, tinnitus, gingival bleeding or odynophagia. Cardiovascular: Positive for epigastric chest pain, no substernal chest pain or radiation to the left arm. Denies shortness of breath, paroxysmal nocturnal dyspnea (PND), orthopnea, edema or palpitations. Respiratory: Denies cough, sputum production wheezes, hemoptysis, shortness of breath. Gastrointestinal: Positive for hematochezia, but denies melena, hematemesis, obstipation, tenesmus or constipation. Positive also for abdominal pain, nausea, vomiting and diarrhea. Genitourinary: Denies any incontinence, dysuria, hematuria, nocturia, polyuria or hesitancy Musculoskeletal: Denies any new joint swelling, decreased range of motion or arthritis. Integumentary: Denies any pruritus, rashes, striae lesions or wounds. Neurologic: Denies any changes to sight/smell/hearing/taste, seizures, headaches, paresthesias, anesthesias. Psychiatric: Denies depression, anxiety, anhedonia, paranoia or episodes of case. Endocrine: Denies mood swings, diarrhea, tremor, palpitations, visual disturbances, constipation or dry skin Hematologic: Denies anemia, purpura or petechiae. Lymphatic: Denies any new lumps or bumps anywhere. PHYSICAL EXAMINATION: Vital Signs: Temperature 98.5, pulse is 95 and regular, respiratory rate is 18, blood pressure 110/59, pulse oximetry is 100% on room air. General: This is a young and mildly obese, pleasant 28-year-old female, lying in the stretcher. She looks uncomfortable but is in no acute distress. HEENT: Sclerae are anicteric. There is no conjunctival pallor. Head atraumatic, normocephalic. Mucous membranes are moist. The patient has her own teeth and dentition is fair. There are no exudates in the posterior pharynx. Neck: Supple. No thyromegaly. No jugular venous distention. No masses. No lymphadenopathy. Lungs: Clear to auscultation bilaterally. No wheezes, rhonchi or rales. No accessory muscle usage noted, symmetric excursion. Heart: Regular rate and rhythm. No murmurs, gallops or rubs. Not tachycardiac. Abdomen: Hyperactive bowel sounds in all four quadrants especially the left ones. Nondistended, no tympany to percussion. Diffuse generalized tenderness to palpation which is moderate in nature. There is no rigidity, but there is mild rebound tenderness appreciated. Pain is elicited in the abdomen with straight leg raise on the right, not on the left. Negative Rovsing sign. No costovertebral angle (CVA) tenderness. Extremities: No clubbing, cyanosis or edema. Capillary refill is brisk and less than 2 seconds bilaterally. Neurologic: Sensation intact bilaterally, muscle strength 5/5 throughout. Cranial nerves II-XII grossly intact. No focal deficits noted. Psychiatric: Affect is of normal, appropriately answering questions. LABORATORY DATA: CBC: WBC 8.3, hemoglobin 11.2, hematocrit 35.2, platelets 399. ESR 60. Differential is normal. Chemistries: Sodium 138, potassium 3.2, chloride 102, carbon dioxide 27, BUN 10, creatinine 0.7, glucose 105. Liver profile: Total bilirubin 0.4. AST 6, ALT 8, alkaline phosphatase 42, C-reactive protein 16.8, total protein 5.8, albumin 2.1, lipase 46. Beta quant less than 5. IMAGING: CT abdomen and pelvis shows persistent enterocolitis involving the colon from hepatic flexure, dysplasia of the rectum, scattered mesenteric lymph nodes which is stable, and post tubal ligation clamps. ASSESSMENT: This is a 28-year-old female with a past medical history of Crohn's who was recently discharged from [facility] last week on a steroid taper. She presents to the emergency department complaining of continued abdominal pain and bloody bowel movements despite steroid therapy. She will be admitted to medical-surgical floor for pain control and further management. PLAN: 1. Enterocolitis secondary to Crohn disease exacerbation. There is no GI coverage for the hospital right now. I did speak with the patient's contact lens fitter, Dr. Lilli Arana, down in [place], who recommended IV steroids, stool sample to rule out infectious cause of the increased number of bowel movements, as well as Cipro and Flagyl to be given IV for the colitis. We will also place her on a clear liquid diet and give her medications for nausea. 2. Crohn disease. The patient takes Apriso outpatient, a total of 1.5 grams daily. We do not have this in the hospital, so we will put her on Delzicol 800 mg by mouth twice a day for a total daily dose of 1.6 grams which is slightly more than her home dose. 3. Nausea and vomiting. Zofran as needed. Clear liquid diet with orders to advance as tolerated. 4. Hypokalemia. Most likely secondary to vomiting and diarrhea. Will replete as needed. 5. Deep venous thrombosis (DVT) prophylaxis. Lovenox 40 mg subcutaneously daily. DISPOSITION: Admit inpatient to medical-surgical as expect more than two midnights. Discharge will depend on adequate pain control and transition to oral medications. I have personally evaluated and examined the patient. Discussed with residents and student regarding plan of care and agree with the above assessment and plan. MAGUE
[2019-02-21 14:22] VITALS: BP 102/53
[2019-02-21] MEDS: MESALAMINE 400 MG CAPSULE DELAYED RELEASE (DELZICOL) PO SCH ×2 (14:53→20:49)
[2019-02-21] MEDS: metroNIDAZOLE 500 MG in IV 1 EA IV SCH ×2 (14:54→21:47)
[2019-02-21] MEDS: methylPREDNISolone INJ 40 MG/1 ML VIAL (J2920) IV SCH (17:46)
[2019-02-21 21:00] VITALS: BP 111/59
[2019-02-21] MEDS: MORPHINE 2 MG/ML 1ML VIAL (J2270) IV PRN (22:51)
[2019-02-22] MEDS: CIPROFLOXACIN 400 MG in IV 1 EA IV SCH ×2 (00:33→12:45)
[2019-02-22] MEDS: methylPREDNISolone INJ 40 MG/1 ML VIAL (J2920) IV SCH ×3 (01:57→18:37)
[2019-02-22] MEDS: MORPHINE 2 MG/ML 1ML VIAL (J2270) IV PRN (03:22)
[2019-02-22] MEDS: metroNIDAZOLE 500 MG in IV 1 EA IV SCH ×3 (05:11→23:15)
[2019-02-22 06:00] VITALS: BP 111/61
[2019-02-22 06:24] LABS: HEMATOCRIT 31.6 % (36.0-47.0); HEMOGLOBIN 9.9 g/dl (12.0-15.5); MEAN CORPUSCULAR HEMOGLOBIN 29.2 pg (27.0-33.0); MEAN CORPUSCULAR HGB CONC 31.3 g/dl (32.0-36.5); MEAN CORPUSCULAR VOLUME 93.2 fl (80.0-96.0); PLATELET COUNT, AUTOMATED 328 10^3/uL (150-450); RED BLOOD COUNT 3.39 10^6/uL (4.00-5.40); WHITE BLOOD COUNT 6.9 10^3/uL (4.0-10.0)
[2019-02-22 06:54] LABS: ALT/SGPT 12 U/L (12-78); BILIRUBIN,TOTAL 0.3 MG/DL (0.2-1.0); BLOOD UREA NITROGEN 6 MG/DL (7-18); CALCIUM LEVEL 8.1 MG/DL (8.5-10.1); CARBON DIOXIDE LEVEL 30 MEQ/L (21-32); CHLORIDE LEVEL 104 MEQ/L (98-107); GLOMERULAR FILTRATION RATE > 60.0 (>60); GLUCOSE, FASTING 132 MG/DL (70-100); POTASSIUM SERUM 4.4 MEQ/L (3.5-5.1); SODIUM LEVEL 139 MEQ/L (136-145); TOTAL PROTEIN 6.2 GM/DL (6.4-8.2)
[2019-02-22 07:07] LABS: ERYTHROCYTE SEDIMENTATION RATE 67 mm/hr (0-20)
[2019-02-22] MEDS: PERCOCET 5MG/325MG TAB PO PRN ×3 (08:24→21:41)
[2019-02-22] MEDS: MESALAMINE 400 MG CAPSULE DELAYED RELEASE (DELZICOL) PO SCH ×2 (08:24→21:40)
[2019-02-22] MEDS: ENOXAPARIN 40 MG/0.4 ML SYRINGE (J1650) SC SCH (08:25)
[2019-02-22] MEDS ORDERED: methylPREDNISolone INJ 40 MG/1 ML VIAL (J2920) IV SCH (09:00)
--- NOTE | 2019-02-22 11:29 | IPNPDOC ---
Text Note Date of Service The patient was seen on 02/22/19. NOTE SUBJECTIVE: Patient seen at bedside this morning. She feels better than she did yesterday. She thinks IV steroids are helping immensely. Her bowel movements have slowed down, she only had 3 last night. She denies fevers, chills, nausea, vomiting, leg swelling. OBJECTIVE: Vital Signs: see below General: This is a young and mildly obese, pleasant 28-year-old female, lying i n the bed. She is in no acute distress. HEENT: Head atraumatic, normocephalic. Mucous membranes are moist. Neck: Supple. No thyromegaly. No jugular venous distention. Lungs: Clear to auscultation bilaterally. No wheezes, rhonchi or rales. Heart: Regular rate and rhythm. No murmurs, gallops or rubs. Abdomen: Normoactive bowel sounds in all four quadrants. Mild tenderness to palpation. There is no rigidity or rebound tenderness appreciated. Extremities: No clubbing, cyanosis or edema. Neurologic: Sensation intact bilaterally, muscle strength 5/5 throughout. Cranial nerves II-XII grossly intact. No focal deficits noted. Psychiatric: Affect is of normal, appropriately answering questions. ASSESSMENT: This is a 28-year-old female with a past medical history of Crohn' s, who was recently discharged from [facility] last week on a steroid taper. She presented to the emergency department complaining on 02/21/19 of continued abdominal pain and bloody bowel movements despite steroid therapy. She was admitted to medical-surgical floor for pain control and further management. She is on Hospital day #2, steroids day #2, antibiotics day #2. PLAN: 1. Enterocolitis secondary to Crohn disease exacerbation. GI panel is negative. Recommendations per the patient's gun striper, Dr. Lilli Arana, down in [place]. Day #2 of IV steroids, day #2 of Cipro and Flagyl. Will continue IV steroids and antibiotics for a total of 3-5 days, based on clinical presentation. Advance diet as tolerated. 2. Crohn disease. The patient takes Apriso outpatient, a total of 1.5 grams daily. We do not have this in the hospital, so we will put her on Delzicol 800 mg by mouth twice a day for a total daily dose of 1.6 grams which is slightly more than her home dose. She has an appointment with Dr. Arana next Wednesday (03/01/2019), potential to be started on Remicade at that time. 3. Nausea and vomiting. Zofran as needed. Advance diet as tolerated. 4. Hypokalemia. Most likely secondary to vomiting and diarrhea. Repleted on 02/21/2019, resolved. 5. Deep venous thrombosis (DVT) prophylaxis. Lovenox 40 mg subcutaneously daily. DISPOSITION: Pending clinical improvement, adequate pain control and transition to oral medications. Potential discharge over the weekend. ATTENDING NOTE I have personally evaluated and examined the patient. Discussed with residents and student regarding plan of care and agree with the above assessment and plan. VS,Denibone, I+O VS, Denibone, I+O Laboratory Tests 02/22/19 06:06 Vital Signs Date Time Temp Pulse Resp B/P (MAP) Pulse Ox O2 Delivery O2 Flow Rate FiO2 02/22/19 09:00 16 02/22/19 06:00 96.7 78 111/61 (78) 97 Room Air I&O- Last 24 Hours up to 6 AM 02/22/19 06:00 Intake Total 2040 ml Output Total 100 ml Balance 1940 ml GME ATTESTATION GME ATTESTATION My faculty preceptor for this patient encounter was physically present during the encounter and was fully available. All aspects of the patient interview, examination, medical decision making process, and medical care plan development were reviewed and approved by the faculty preceptor. The faculty preceptor is aware and concurs with the plan as stated in the body of this note and will attest to such by his/her cosignature. YAHAIRA MONTANO D.O. Feb 22, 2019 11:29 NARINDER PHILIPPE MD Feb 22, 2019 13:41
[2019-02-22 14:00] VITALS: BP 106/55
[2019-02-22 16:20] VITALS: BP 114/67
[2019-02-23] MEDS: CIPROFLOXACIN 400 MG in IV 1 EA IV SCH ×2 (00:35→12:26)
[2019-02-23] MEDS: methylPREDNISolone INJ 40 MG/1 ML VIAL (J2920) IV SCH ×3 (01:59→17:55)
[2019-02-23] MEDS: PERCOCET 5MG/325MG TAB PO PRN ×4 (03:41→22:14)
[2019-02-23] MEDS: metroNIDAZOLE 500 MG in IV 1 EA IV SCH ×3 (06:42→21:05)
[2019-02-23 08:00] VITALS: BP 120/56
--- NOTE | 2019-02-23 08:39 | IPNPDOC ---
Text Note Date of Service The patient was seen on 02/23/19. NOTE SUBJECTIVE: Patient seen at bedside this morning. She feels much better than she did yesterday. She was able to have a solid bowel movement last night, without blood. She tolerated a soft mechanical diet. She will try a regular diet today. She denies use of breath, fevers, chills, nausea, vomiting, leg swelling. OBJECTIVE: Vital Signs: see below General: This is a young and mildly obese, pleasant 28-year-old female, sitting up in the bed. She is in no acute distress. HEENT: Head atraumatic, normocephalic. Mucous membranes are moist. Neck: Supple. No thyromegaly. No jugular venous distention. Lungs: Clear to auscultation bilaterally. No wheezes, rhonchi or rales. Heart: Regular rate and rhythm. No murmurs, gallops or rubs. Abdomen: Normoactive bowel sounds in all four quadrants. Trace tenderness to palpation. There is no rigidity or rebound tenderness appreciated. Extremities: No clubbing, cyanosis or edema. Neurologic: Sensation intact bilaterally, muscle strength 5/5 throughout. Cranial nerves II-XII grossly intact. No focal deficits noted. Psychiatric: Affect is of normal, appropriately answering questions. ASSESSMENT: This is a 28-year-old female with a past medical history of Crohn's, who was recently discharged from [facility] last week on a steroid taper. She presented to the emergency department complaining on 02/21/19 of continued abdominal pain and bloody bowel movements despite steroid therapy. She was admitted to medical-surgical floor for pain control and further management. She is on Hospital day #3, steroids day #3, antibiotics day #3. PLAN: 1. Enterocolitis secondary to Crohn disease exacerbation. GI panel is negative. Recommendations per the patient's hr manager, Dr. Lilli Arana, down in [place]. Day #2 of IV steroids, day #2 of Cipro and Flagyl. Will continue IV steroids for a total of 72 hours based on clinical presentation (IV steroids will be done at 10 AM tomorrow, and she can be discharged with oral steroids and oral antibiotics). Advance diet as tolerated. 2. Crohn disease. The patient takes Apriso outpatient, a total of 1.5 grams daily. We do not have this in the hospital, so we will put her on Delzicol 800 mg by mouth twice a day for a total daily dose of 1.6 grams which is slightly more than her home dose. She has an appointment with Dr. Arana next Wednesday (03/01/2019), potential to be evaluated for Remicade at that time. 3. Nausea and vomiting. Zofran as needed. Advance diet as tolerated. 4. Hypokalemia. Most likely secondary to vomiting and diarrhea. Repleted on 02/21/2019, resolved. 5. Deep venous thrombosis (DVT) prophylaxis. Lovenox 40 mg subcutaneously daily. DISPOSITION: Discharge in 24 hours, after 72 hours IV steroids VS,Fishbone, I+O VS, Fishbone, I+O Vital Signs Date Time Temp Pulse Resp B/P (MAP) Pulse Ox O2 Delivery O2 Flow Rate FiO2 02/23/19 04:11 18 02/22/19 16:20 98.0 84 114/67 (83) 100 Room Air I&O- Last 24 Hours up to 6 AM 02/23/19 06:00 Intake Total 960 ml Output Total 850 ml Balance 110 ml GME ATTESTATION GME ATTESTATION My faculty preceptor for this patient encounter was physically present during the encounter and was fully available. All aspects of the patient interview, examination, medical decision making process, and medical care plan development were reviewed and approved by the faculty preceptor. The faculty preceptor is aware and concurs with the plan as stated in the body of this note and will attest to such by his/her cosignature. ATTENDING NOTE I have personally evaluated and examined the patient. Discussed with residents and student regarding plan of care and agree with the above assessment and plan. YAHAIRA MONTANO D.O. Feb 23, 2019 08:38 NARINDER PHILIPPE MD Feb 23, 2019 10:16
[2019-02-23] MEDS: ENOXAPARIN 40 MG/0.4 ML SYRINGE (J1650) SC SCH (09:00)
[2019-02-23] MEDS: MESALAMINE 400 MG CAPSULE DELAYED RELEASE (DELZICOL) PO SCH ×2 (09:42→21:05)
[2019-02-23 17:00] VITALS: BP 131/79
[2019-02-23 20:00] VITALS: BP 133/67
[2019-02-24] VITALS: BP 104/66
[2019-02-24] MEDS: CIPROFLOXACIN 400 MG in IV 1 EA IV SCH (01:12)
[2019-02-24] MEDS: methylPREDNISolone INJ 40 MG/1 ML VIAL (J2920) IV SCH ×2 (01:12→09:10)
[2019-02-24] MEDS ORDERED: SLF 3 ML SYR IV SCH (06:00)
[2019-02-24] MEDS ORDERED: SLF 3 ML SYR IV PRN (06:00)
[2019-02-24] MEDS: metroNIDAZOLE 500 MG in IV 1 EA IV SCH (06:11)
[2019-02-24] MEDS: PERCOCET 5MG/325MG TAB PO PRN (06:11)
[2019-02-24] MEDS ORDERED: PERCOCET PO (07:28)
[2019-02-24] MEDS ORDERED: CIPR500T39 PO (07:28)
[2019-02-24] MEDS ORDERED: METR-265 PO (07:28)
[2019-02-24 07:50] VITALS: BP 129/67
[2019-02-24] MEDS: ENOXAPARIN 40 MG/0.4 ML SYRINGE (J1650) SC SCH (09:00)
[2019-02-24] MEDS: MESALAMINE 400 MG CAPSULE DELAYED RELEASE (DELZICOL) PO SCH (09:10)
--- NOTE | 2019-02-24 14:12 | DSES ---
DATE OF ADMISSION: 02/21/2019 DATE OF DISCHARGE: 02/24/2019 DISCHARGE DIAGNOSIS: 1. Enteric colitis secondary to Crohn disease exacerbation. 2. Crohn disease. 3. Nausea and vomiting. 5. Hypokalemia. CONSULTANTS: None. PRIMARY CARE PROVIDER: Dr. Roxann Baugh SENIOR MANAGER CREATIVE SERVICES: Dr. Lilli Arana [facility] COURSE: This is a 28-year-old female with a past medical history significant for Crohn disease, who had recently been admitted to [facility] on 02/15/2019 and subsequently discharged on 02/16/2018 with a steroid taper and Tylenol 3. She presented to the emergency department 02/21/2019 with continued abdominal pain that had increased and worsened in nature. She had also continued to have bloody bowel movements that had increased in number and duration since her previous discharge, indicating that she was spending all right on the toilet defecating blood, which was bright red. She felt that the steroid taper that she was sent home on was not working for her anymore and had also complained of new onset vomiting and decreased appetite. She was admitted to the medical-surgical floor for pain control and further management with intravenous (IV) steroids as well as IV antibiotics (Cipro and Flagyl). She was placed on a clear liquid diet and given medications for nausea. Her outpatient Apriso was changed to inpatient Delzicol as that is what our pharmacy had. She was given Zofran as needed. On second day of hospitalization, she was able to advance from clears to full liquids, and on the third day of hospitalization, was able to advance to a soft mechanical diet. On her fourth day of hospitalization, she felt much better and had completed 72 hours of IV antibiotics and IV steroids. She was meeting all discharge criteria and was discharged home with antibiotics to complete a 10-day course of Cipro and Flagyl, as well as Percocet for pain control, and she was encouraged to resume the steroid taper that had already been prescribed to her. PHYSICAL EXAM: Temperature 96.8, pulse 81 and regular, respiratory rate 18 and unlabored, blood pressure 129/67, pulse oximetry is 100% on room air. General: This is a very pleasant -[place] female sitting up in bed in no acute distress. HEENT: Atraumatic, normocephalic. No scleral icterus. No conjunctival pallor. Mucous membranes are moist. She had her own teeth, and dentition is fair. There were no exudates in the posterior pharynx. Neck: Supple, no thyromegaly. No jugular venous distention (JVD). No masses. No lymphadenopathy. Lungs: Clear to auscultation bilaterally. No wheezes, rhonchi, or rales. No accessory muscle usage noted. Symmetric excursion. Heart: Regular rate and rhythm. No murmurs, gallops, or rubs. Not tachycardiac. Abdomen: Normoactive bowel sounds in all four quadrants with mild tenderness to palpation of the left lower quadrant, much improved from admission. She was nondistended and had no tympany to percussion. No rigidity, guarding, or rebound tenderness was noted. Extremities: No clubbing, cyanosis, or edema. Capillary refill is brisk and less than 2 seconds bilaterally in all four extremities. Neuro: Sensation intact bilaterally. Muscle strength f5/5 throughout. Cranial nerves II-XII grossly intact. No focal deficits noted. Psychiatric: Affect is normal, appropriately answering all questions. LABORATORY DATA: CBC from 02/22/2019 showed a decreased white count to 6.9, hemoglobin 9.9, hematocrit 31.6, platelets 328, and ESR of 67. Chemistry: Sodium 139, potassium 4.4, chloride 104, carbon dioxide 30, BUN 6, creatinine 0.60, fasting glucose 132, calcium 8.1, total bilirubin 0.3, AST 7, ALT 12, alkaline phosphatase 43, CRP 18.80, total protein 6.2, albumin 2.0. IMAGING: CT of abdomen and pelvis from 02/21/2019 showed persistent enteric colitis involving the colon from hepatic flexure, descending colon, all the way to the rectum as well as scattered mesenteric lymph nodes which were stable and post tubal ligation clamps. DISCHARGE MEDICATIONS: - ciprofloxacin 500 mg by mouth twice a day for 7 days - metronidazole 500 mg by mouth three times a day for 7 days - Percocet 5-325 one tablet by mouth every 6 hours as needed for pain with a maximum daily dose of four, 20 tablets given - Apriso 0.375 grams, four capsules by mouth daily - prednisone 10 mg taper (that was previously prescribed) STOP MEDICATIONS: Include; - Tylenol #3 with codeine FOLLOWUP: With Dr. Lilli Arana as scheduled on 03/01/2019. The patient is also established at the [facility] and should call on Wednesday to schedule a followup appointment with her primary care provider, Dr. Roxann Baugh. 33 minutes was spent coordinating care. I have personally evaluated and examined the patient. Discussed with residents and student regarding plan of care and agree with the above assessment and discharge plan. MAGUE
== END 2019-02-24 10:10 | disposition home or self-care (01) | DRG 245 ==
LOC: M ED 04:59 → M ED INP 11:56 → M MS4PR 13:02 → M PED 02-22 16:19
PROVIDERS: ADMIT Student in an Organized Health Care Education/Training Program; ATTEND Student in an Organized Health Care Education/Training Program
DX: K50.90 Crohn's disease, unspecified, without complications (principal); E87.6 Hypokalemia; R11.2 Nausea with vomiting, unspecified

== ENCOUNTER 2020-02-01 17:00 | Emergency (ER) | payer OTHER ==
[~2020-02-01] VITALS: Ht 157.5 cm; Wt 79.5 kg
[~2020-02-01 17:00] MED LIST changes: +CIPR500T39 PO; +CYCL-707 PO; -CYCL10TA PO; -METH4TAB28 PO; +METH4TAB8 PO; +METR-265 PO
[2020-02-01] MEDS ORDERED: ONDANSETRON 4 MG ORAL DISINTEGRATING TAB PO ONE (19:00)
[2020-02-01] MEDS ORDERED: ACETAMINOPHEN 325 MG TAB PO ONE (19:00)
--- NOTE | 2020-02-01 19:51 | REPVR ---
PROCEDURE INFORMATION: Exam: CT Thoracic Spine Without Contrast Exam date and time: 02/01/2020 7:21 PM Age: 29 years old Clinical indication: Injury or trauma; Fall; Blunt trauma (contusions or hematomas); Additional info: Fall down 13 stairs, vertebral tenderness TECHNIQUE: Imaging protocol: Computed tomography images of the thoracic spine without contrast. Radiation optimization: All CT scans at this facility use at least one of these dose optimization techniques: automated exposure control; mA and/or kV adjustment per patient size (includes targeted exams where dose is matched to clinical indication); or iterative reconstruction. COMPARISON: No relevant prior studies available. FINDINGS: Vertebrae: Vertebral body heights are intact. Alignment is maintained. No acute fracture is identified. Discs/Spinal canal/Neural foramina: There is mild multilevel disc space narrowing and marginal osteophyte formation. CT is not optimal for the evaluation of the discs, neural foramina or spinal canal or cord. No significant posterior disc displacements are evident. Soft tissues: There is no significant paraspinal hematoma. Lungs: The visualized lung whitney demonstrate minor dependent atelectasis. IMPRESSION: 1. No acute fracture or dislocation identified. 2. Mild spondylosis without significant posterior disc displacements evident. The discs and integrity of the cord could be better evaluated by means of MRI as clinically appropriate. Electronically signed by: Nickolas Tom On 02/01/2020 19:51:30 PM
--- NOTE | 2020-02-01 19:58 | REPVR ---
PROCEDURE INFORMATION: Exam: CT Cervical Spine Without Contrast Exam date and time: 02/01/2020 7:21 PM Age: 29 years old Clinical indication: Injury or trauma; Fall; Blunt trauma; Additional info: Fall down 13 stairs, nausea, neck pain TECHNIQUE: Imaging protocol: Computed tomography images of the cervical spine without contrast. Radiation optimization: All CT scans at this facility use at least one of these dose optimization techniques: automated exposure control; mA and/or kV adjustment per patient size (includes targeted exams where dose is matched to clinical indication); or iterative reconstruction. COMPARISON: No relevant prior studies available. FINDINGS: Bones/joints: Nonspecific straightening. Vertebral body height and AP alignment is preserved. No acute cervical spine fracture. Discs/Spinal canal/Neural foramina: No definite significant central canal stenosis within limitations of technique. Soft tissues: Unremarkable. Lungs: Lung apices are normal. Pleural space: No visible pneumothorax. IMPRESSION: No acute cervical spine fracture. Electronically signed by: Alfred Rueda On 02/01/2020 19:58:13 PM
--- NOTE | 2020-02-01 20:01 | REPVR ---
PROCEDURE INFORMATION: Exam: CT Head Without Contrast Exam date and time: 02/01/2020 7:21 PM Age: 29 years old Clinical indication: Injury or trauma; Fall; Blunt trauma (contusions or hematomas); Additional info: Fall down 13 stairs, nausea, severe headache post contusion TECHNIQUE: Imaging protocol: Computed tomography of the head without contrast. Radiation optimization: All CT scans at this facility use at least one of these dose optimization techniques: automated exposure control; mA and/or kV adjustment per patient size (includes targeted exams where dose is matched to clinical indication); or iterative reconstruction. COMPARISON: No relevant prior studies available. FINDINGS: Brain: Normal. No hemorrhage. Unremarkable white matter. No mass effect. Cerebral ventricles: No ventriculomegaly. Bones/joints: Unremarkable. No acute fracture. Paranasal sinuses: Visualized sinuses are unremarkable. No fluid levels. Mastoid air cells: Visualized mastoid air cells are well aerated. Soft tissues: Unremarkable. IMPRESSION: No acute intracranial abnormality. Electronically signed by: Alfred Rueda On 02/01/2020 20:01:24 PM
[2020-02-01 20:44] VITALS: BP 118/63
== END 2020-02-01 20:45 | disposition home or self-care (01) ==
LOC: M ED 17:00
DX: S16.1XXA Strain of muscle, fascia and tendon at neck level, initial encounter (principal); M54.9 Dorsalgia, unspecified; W10.9XXA Fall (on) (from) unspecified stairs and steps, initial encounter; Y92.099 Unspecified place in other non-institutional residence as the place of occurrence of the external cause; Y93.9 Activity, unspecified; Y99.9 Unspecified external cause status; K50.90 Crohn's disease, unspecified, without complications; Z88.6 Allergy status to analgesic agent
CPT/HCPCS: 36415; 70450; 72125; 72128; 84702; 99284; Q0162

== ENCOUNTER → 2020-05-28 | Outpatient (CLI) | payer OTHER ==
[~2020-05-28] MED LIST changes: +BUDE3CAP; +CIPR500T39; +ONDA4TAB6 PO
[2020-05-28 13:03] LABS: HEMATOCRIT 39.1 % (36.0-47.0); HEMOGLOBIN 12.1 g/dl (12.0-15.5); MEAN CORPUSCULAR HGB CONC 30.9 g/dl (32.0-36.5); MEAN CORPUSCULAR VOLUME 90.5 fl (80.0-96.0); PLATELET COUNT, AUTOMATED 299 10^3/uL (150-450); RED BLOOD COUNT 4.32 10^6/uL (4.00-5.40); WHITE BLOOD COUNT 9.1 10^3/uL (4.0-10.0)
[2020-05-28 13:29] LABS: ALBUMIN 3.3 GM/DL (3.2-5.2); ALT/SGPT 13 U/L (12-78); BILIRUBIN,TOTAL 0.3 MG/DL (0.2-1.0); BLOOD UREA NITROGEN 9 MG/DL (7-18); CALCIUM LEVEL 8.7 MG/DL (8.5-10.1); CARBON DIOXIDE LEVEL 30 MEQ/L (21-32); CHLORIDE LEVEL 106 MEQ/L (98-107); CREATININE FOR GFR 0.72 MG/DL (0.55-1.30); GLOMERULAR FILTRATION RATE > 60.0 (>60); GLUCOSE, FASTING 102 MG/DL (70-100); POTASSIUM SERUM 3.5 MEQ/L (3.5-5.1); SODIUM LEVEL 141 MEQ/L (136-145)
[2020-05-28 13:38] LABS: ERYTHROCYTE SEDIMENTATION RATE 46 mm/hr (0-20)
== END ==
LOC: M LAB 12:04
PROVIDERS: ATTEND Internal Medicine Gastroenterology
DX: K51.90 Ulcerative colitis, unspecified, without complications (principal); K59.1 Functional diarrhea

== ENCOUNTER 2020-05-29 13:24 | Emergency (ER) | payer OTHER ==
[~2020-05-29] VITALS: Ht 157.5 cm; Wt 79.2 kg
[~2020-05-29 13:24] MED LIST changes: -BUDE3CAP; -CIPR500T39; -ONDA4TAB6 PO
[2020-05-29] MEDS ORDERED: BUDE3CAP (13:33)
[2020-05-29] MEDS ORDERED: CIPR500T39 (13:33)
[2020-05-29] MEDS ORDERED: METOCLOPRAMIDE INJ 10MG/2ML VIAL (J2765 PER 1) IV ONE (13:40)
[2020-05-29] MEDS ORDERED: NS 1,000 ML IV ONE ×2 (13:40)
[2020-05-29] MEDS ORDERED: POTASSIUM CHLORIDE 10 MEQ SR TABLET PO ONE ×2 (14:30→15:35)
[2020-05-29] MEDS ORDERED: ONDA4TAB6 PO (15:28)
[2020-05-29 16:45] VITALS: BP 132/77
== END 2020-05-29 16:43 | disposition home or self-care (01) ==
LOC: M ED 13:24
DX: K52.9 Noninfective gastroenteritis and colitis, unspecified (principal); E87.6 Hypokalemia; K50.90 Crohn's disease, unspecified, without complications; Z88.6 Allergy status to analgesic agent; Z79.899 Other long term (current) drug therapy
CPT/HCPCS: 80047; 84702; 96361; 96374; 99283; J2765

== ENCOUNTER 2022-01-22 15:37 | Emergency (ER) | payer OTHER ==
[~2022-01-22] VITALS: Ht 157.5 cm; Wt 86.3 kg
[2022-01-22 15:37] VITALS: BP 124/74
[~2022-01-22 15:37] MED LIST changes: +BUDE3CAP; -CEFD1CAP8; +CEFD300C41; +CIPR500T39; +ONDA4TAB6 PO
[2022-01-22] MEDS ORDERED: MECL-86 (15:57)
[2022-01-22 17:43] LABS: BASO % 0.2 % (0.0-1.0); EOS % 0.3 % (0.0-3.0); HEMATOCRIT 40.8 % (36.0-47.0); HEMOGLOBIN 12.8 g/dl (12.0-15.5); LYMPH # 1.1 10^3/uL (1.5-5.0); LYMPH % 11.1 % (24.0-44.0); MEAN CORPUSCULAR HEMOGLOBIN 28.3 pg (27.0-33.0); MEAN CORPUSCULAR HGB CONC 31.4 g/dl (32.0-36.5); MEAN CORPUSCULAR VOLUME 90.3 fl (80.0-96.0); MONO # 0.5 10^3/uL (0.0-0.8); MONO % 5.2 % (2.0-8.0); NEUTROPHILS # 7.9 10^3/uL (1.5-8.5); NEUTROPHILS % 82.8 % (36.0-66.0); PLATELET COUNT, AUTOMATED 236 10^3/uL (150-450); RED BLOOD COUNT 4.52 10^6/uL (4.00-5.40); WHITE BLOOD COUNT 9.6 10^3/uL (4.0-10.0)
[2022-01-22 17:54] LABS: URINE PREG TEST NEGATIVE (NEGATIVE)
[2022-01-22 18:22] LABS: ALBUMIN 4.1 GM/DL (3.2-5.2); ALT/SGPT 21 U/L (12-78); BILIRUBIN,DIRECT < 0.1 MG/DL (0.0-0.2); BILIRUBIN,TOTAL 0.4 MG/DL (0.2-1.0); BLOOD UREA NITROGEN 15 MG/DL (7-18); CALCIUM LEVEL 8.6 MG/DL (8.5-10.1); CARBON DIOXIDE LEVEL 24 MEQ/L (21-32); CHLORIDE LEVEL 107 MEQ/L (98-107); CREATININE FOR GFR 0.85 MG/DL (0.55-1.30); GLOMERULAR FILTRATION RATE > 60.0 (>60); GLUCOSE, FASTING 101 MG/DL (70-100); LIPASE 129 U/L (73-393); POTASSIUM SERUM 3.8 MEQ/L (3.5-5.1); SODIUM LEVEL 137 MEQ/L (136-145); TOTAL PROTEIN 8.2 GM/DL (6.4-8.2)
[2022-01-22] MEDS ORDERED: ONDANSETRON 4MG 2ML VIAL IV ONE (20:00)
[2022-01-22] MEDS ORDERED: NS 1,000 ML IV ONE (20:00)
[2022-01-22] MEDS ORDERED: ISOVUE-370 76% 100ML VIAL As Ordered ONE (20:07)
[2022-01-22] MEDS ORDERED: methylPREDNISolone 125MG 2ML VIAL IV ONE (21:25)
== END 2022-01-22 21:52 | disposition home or self-care (01) ==
LOC: M ED 15:37
DX: K50.918 Crohn's disease, unspecified, with other complication (principal); K56.699 Other intestinal obstruction unspecified as to partial versus complete obstruction; M62.08 Separation of muscle (nontraumatic), other site; K43.9 Ventral hernia without obstruction or gangrene; R42 Dizziness and giddiness; G43.909 Migraine, unspecified, not intractable, without status migrainosus; Z86.16 Personal history of COVID-19; Z88.6 Allergy status to analgesic agent; Z79.899 Other long term (current) drug therapy
CPT/HCPCS: 74177; 80048; 80076; 81000; 83690; 84703; 85025; 87086; 87426; 96361; 96374; 96375; 99283; J2405; J2930; Q9967

== ENCOUNTER → 2022-02-06 | Outpatient (CLI) | payer OTHER ==
[~2022-02-06] MED LIST changes: +MECL-86
[2022-02-06 12:10] LABS: HEMATOCRIT 39.1 % (36.0-47.0); HEMOGLOBIN 12.1 g/dl (12.0-15.5); MEAN CORPUSCULAR HEMOGLOBIN 27.6 pg (27.0-33.0); MEAN CORPUSCULAR HGB CONC 30.9 g/dl (32.0-36.5); MEAN CORPUSCULAR VOLUME 89.1 fl (80.0-96.0); PLATELET COUNT, AUTOMATED 282 10^3/uL (150-450); RED BLOOD COUNT 4.39 10^6/uL (4.00-5.40); WHITE BLOOD COUNT 11.3 10^3/uL (4.0-10.0)
[2022-02-06 12:53] LABS: ERYTHROCYTE SEDIMENTATION RATE 11 mm/hr (0-20)
[2022-02-06 13:05] LABS: ALBUMIN 3.8 GM/DL (3.2-5.2); ALT/SGPT 18 U/L (12-78); BILIRUBIN,TOTAL 0.6 MG/DL (0.2-1.0); BLOOD UREA NITROGEN 11 MG/DL (7-18); CALCIUM LEVEL 9.6 MG/DL (8.5-10.1); CARBON DIOXIDE LEVEL 21 MEQ/L (21-32); CHLORIDE LEVEL 103 MEQ/L (98-107); CREATININE FOR GFR 0.86 MG/DL (0.55-1.30); GLOMERULAR FILTRATION RATE > 60.0 (>60); GLUCOSE, FASTING 133 MG/DL (70-100); POTASSIUM SERUM 3.5 MEQ/L (3.5-5.1); SODIUM LEVEL 136 MEQ/L (136-145)
[2022-02-06 13:55] LABS: HEPATITIS B SURFACE ANTIBODY POSITIVE (POSITIVE)
[2022-02-06 14:34] LABS: HEPATITIS C VIRUS ABY INDEX 0.1 INDEX (<0.8)
== END ==
LOC: M LAB 10:59
PROVIDERS: ATTEND Internal Medicine Gastroenterology
DX: D50.9 Iron deficiency anemia, unspecified (principal); K52.9 Noninfective gastroenteritis and colitis, unspecified; R11.0 Nausea; K51.00 Ulcerative (chronic) pancolitis without complications

== ENCOUNTER → 2022-07-22 | Outpatient (CLI) | payer OTHER ==
[2022-07-22 11:23] LABS: HEMATOCRIT 39.8 % (36.0-47.0); HEMOGLOBIN 12.4 g/dl (12.0-15.5); MEAN CORPUSCULAR HEMOGLOBIN 28.1 pg (27.0-33.0); MEAN CORPUSCULAR HGB CONC 31.2 g/dl (32.0-36.5); PLATELET COUNT, AUTOMATED 231 10^3/uL (150-450); RED BLOOD COUNT 4.42 10^6/uL (4.00-5.40); WHITE BLOOD COUNT 6.9 10^3/uL (4.0-10.0)
[2022-07-22 11:50] LABS: HEMOGLOBIN A1c 5.2 % (4.0-6.0)
[2022-07-22 11:58] LABS: C REACTIVE PROTEIN QUANTITATIV < 0.40 MG/DL (<1.0)
[2022-07-22 11:59] LABS: CREATININE, URINE 193.1 MG/DL; MAU/CREAT RATIO 3.6 MCG/MG (0.0-30.0); TOTAL IRON BINDING CAPACITY 379 UG/DL (250-425)
[2022-07-22 12:00] LABS: ALBUMIN 3.8 G/DL (3.2-5.2); ALKALINE PHOSPHATASE 40 U/L (46-116); ALT/SGPT < 9 U/L (7.0-40); AST/SGOT 13 U/L (<34); BILIRUBIN,TOTAL 0.5 MG/DL (0.3-1.2); BLOOD UREA NITROGEN 15 MG/DL (9-23); CALCIUM LEVEL 9.4 MG/DL (8.5-10.1); CARBON DIOXIDE LEVEL 24 MMOL/L (20-31); CHLORIDE LEVEL 107 MMOL/L (98-107); CHOLESTEROL LEVEL 235 MG/DL (<200); CHOLESTEROL RISK RATIO 3.38 (<5); CREATININE FOR GFR 0.68 MG/DL (0.55-1.30); GLOMERULAR FILTRATION RATE > 60.0 (>60); GLUCOSE, FASTING 87 MG/DL (60-100); HDL CHOLESTEROL 69.4 MG/DL (>40); IRON (FE) 62 UG/DL (50-170); LDL CHOLESTEROL 137.6 MG/DL (<100); NON-HDL-C 165.6 MG/DL; PERCENT SATURATION 16.4 % (13.2-45.0); POTASSIUM SERUM 4.3 MMOL/L (3.5-5.1); SODIUM LEVEL 135 MMOL/L (136-145); THYROID STIMULATING HORMONE 0.896 uIU/ML (0.55-4.78); TOTAL PROTEIN 7.7 G/DL (5.7-8.2); TRIGLYCERIDES LEVEL 140 MG/DL (<150)
[2022-07-22 12:01] LABS: FREE T4 1.17 NG/DL (0.89-1.76); TOTAL 25(OH) VITAMIN D 16.7 NG/ML (20.0-100.0); VITAMIN B12 LEVEL 389 PG/ML (211-911)
== END ==
LOC: M PLALAB 09:05
PROVIDERS: ATTEND Internal Medicine Hematology
DX: E88.81 Metabolic syndrome and other insulin resistance (principal); F41.9 Anxiety disorder, unspecified; E61.1 Iron deficiency

== ENCOUNTER → 2022-09-23 | Outpatient (REF) | payer OTHER | LOC: M SFHCWAGY 17:30 | PROVIDERS: ATTEND Nurse Practitioner Family | DX: F52.6 Dyspareunia not due to a substance or known physiological condition (principal); Z12.4 Encounter for screening for malignant neoplasm of cervix | CPT/HCPCS: 87070; 87624; G0123 ==

== ENCOUNTER 2022-10-20 22:16 | Emergency (ER) | payer OTHER ==
[2022-10-21] MEDS ORDERED: NS 1,000 ML IV ONE ×2 (07:50→08:35)
[2022-10-21] MEDS ORDERED: METOCLOPRAMIDE INJ 10MG/2ML VIAL IV ONE ×2 (07:50→08:35)
[2022-10-21] MEDS ORDERED: KETOROLAC 30 MG/ML 1ML VIAL IV ONE ×2 (07:50→08:35)
[2022-10-21] MEDS ORDERED: ACETAMINOPHEN TAB 650MG DOSE (2X325MG) PO ONE (08:10)
[2022-10-21] MEDS ORDERED: KETOROLAC 30 MG/ML 1ML VIAL IM ONE (08:10)
[2022-10-21 08:56] LABS: BASO % 0.6 % (0.0-1.0); EOS # 0.2 10^3/uL (0.0-0.5); EOS % 4.4 % (0.0-3.0); HEMATOCRIT 34.2 % (36.0-47.0); HEMOGLOBIN 11.1 g/dl (12.0-15.5); LYMPH # 2.5 10^3/uL (1.5-5.0); LYMPH % 48.4 % (24.0-44.0); MEAN CORPUSCULAR HEMOGLOBIN 29.5 pg (27.0-33.0); MEAN CORPUSCULAR HGB CONC 32.5 g/dl (32.0-36.5); MONO # 0.4 10^3/uL (0.0-0.8); MONO % 8.1 % (2.0-8.0); NEUTROPHILS % 38.3 % (36.0-66.0); PLATELET COUNT, AUTOMATED 262 10^3/uL (150-450); RED BLOOD COUNT 3.76 10^6/uL (4.00-5.40); WHITE BLOOD COUNT 5.2 10^3/uL (4.0-10.0)
[2022-10-21 09:17] LABS: BLOOD UREA NITROGEN 14 MG/DL (9-23); CALCIUM LEVEL 8.7 MG/DL (8.5-10.1); CARBON DIOXIDE LEVEL 24 MMOL/L (20-31); CHLORIDE LEVEL 108 MMOL/L (98-107); CREATININE FOR GFR 0.66 MG/DL (0.55-1.30); GLOMERULAR FILTRATION RATE > 60.0 (>60); GLUCOSE, FASTING 98 MG/DL (60-100); POTASSIUM SERUM 4.1 MMOL/L (3.5-5.1); SODIUM LEVEL 141 MMOL/L (136-145)
[2022-10-21] MEDS ORDERED: FIOR1CAP PO (10:07)
[2022-10-21 10:33] VITALS: BP 124/76; TEMP 97.6; O2SAT 98
== END 2022-10-21 10:45 | disposition home or self-care (01) ==
LOC: M ED 22:16
DX: G43.909 Migraine, unspecified, not intractable, without status migrainosus (principal); Z88.6 Allergy status to analgesic agent
CPT/HCPCS: 80048; 85025; 96374; 96375; 99284; J1885; J2765

== ENCOUNTER 2023-01-18 16:04 | Emergency (ER) | payer OTHER ==
[~2023-01-18] VITALS: Ht 160 cm; Wt 98.6 kg
[~2023-01-18 16:04] MED LIST changes: -CEFD300C41; +CEFD300C42; +FIOR1CAP PO
[2023-01-18] MEDS ORDERED: KETOROLAC 60MG 2ML VIAL IM ONE (19:35)
[2023-01-18] MEDS ORDERED: LIDOCAINE 5% (LIDODERM) PATCH TD ONE (19:35)
[2023-01-18] MEDS ORDERED: diazePAM 5MG TABLET PO ONE ×2 (19:35→21:05)
[2023-01-18] MEDS ORDERED: METH-1165 PO (20:58)
[2023-01-18] MEDS ORDERED: MENT118S2 TP (20:58)
[2023-01-18] MEDS ORDERED: ASPE4PAD TOP (20:58)
[2023-01-18 21:04] VITALS: BP 136/75; TEMP 97.6; O2SAT 96
== END 2023-01-18 21:20 | disposition home or self-care (01) ==
LOC: M ED 16:04
DX: M54.50 Low back pain, unspecified (principal); Z88.6 Allergy status to analgesic agent; Z79.1 Long term (current) use of non-steroidal anti-inflammatories (NSAID); Z79.899 Other long term (current) drug therapy
CPT/HCPCS: 72072; 72110; 96372; 99283; J1885

== ENCOUNTER → 2023-08-25 | Outpatient (CLI) | payer OTHER ==
[~2023-08-25] MED LIST changes: +ASPE4PAD TOP; +CEFD1CAP9; -CEFD300C42; +MENT118S2 TP; +METH-1165 PO
== END ==
LOC: M PLAIMG 09:15
PROVIDERS: ATTEND Physician Assistant
DX: M51.26 Other intervertebral disc displacement, lumbar region (principal)

== ENCOUNTER → 2023-08-25 | Outpatient (CLI) | payer OTHER, MEDICAID ==
[2023-08-25 13:37] LABS: HEMATOCRIT 36.5 % (36.0-47.0); HEMOGLOBIN 11.6 g/dl (12.0-15.5); MEAN CORPUSCULAR HEMOGLOBIN 29.2 pg (27.0-33.0); MEAN CORPUSCULAR HGB CONC 31.8 g/dl (32.0-36.5); MEAN CORPUSCULAR VOLUME 91.9 fl (80.0-96.0); PLATELET COUNT, AUTOMATED 217 10^3/uL (150-450); RED BLOOD COUNT 3.97 10^6/uL (4.00-5.40); WHITE BLOOD COUNT 5.7 10^3/uL (4.0-10.0)
[2023-08-25 14:05] LABS: ALBUMIN 3.8 G/DL (3.2-5.2); ALKALINE PHOSPHATASE 37 U/L (46-116); ALT/SGPT 13 U/L (7.0-40); AST/SGOT 9 U/L (<34); BILIRUBIN,TOTAL 0.5 MG/DL (0.3-1.2); BLOOD UREA NITROGEN 16 MG/DL (9-23); CALCIUM LEVEL 9.1 MG/DL (8.5-10.1); CARBON DIOXIDE LEVEL 24 MMOL/L (20-31); CHLORIDE LEVEL 106 MMOL/L (98-107); CREATININE FOR GFR 0.74 MG/DL (0.55-1.30); GLOMERULAR FILTRATION RATE > 60.0 (>60); GLUCOSE, FASTING 93 MG/DL (60-100); IRON (FE) 23 UG/DL (50-170); PERCENT SATURATION 6.1 % (13.2-45.0); POTASSIUM SERUM 4.1 MMOL/L (3.5-5.1); SODIUM LEVEL 136 MMOL/L (136-145); TOTAL IRON BINDING CAPACITY 376 UG/DL (250-425); TOTAL PROTEIN 6.9 G/DL (5.7-8.2)
== END ==
LOC: M PLALAB 10:03
PROVIDERS: ATTEND Internal Medicine Hematology
DX: N92.1 Excessive and frequent menstruation with irregular cycle (principal); E61.1 Iron deficiency; E55.9 Vitamin D deficiency, unspecified

== ENCOUNTER 2023-09-13 14:18 | Outpatient (CLI) | payer OTHER, MEDICAID ==
[~2023-09-13] VITALS: Ht 160 cm; Wt 100.0 kg
[~2023-09-13 14:18] MED LIST changes: +ALBUTEROL SULFATE 2.5MG/0.5ML INH NEB SOLN INH PRN; +EPINEPHrine INJ 1 MG/ML 1ML AMP IM PRN; +NS 1,000 ML IV SCH; +ONDA-282 PO; -ONDA4TAB6 PO; +diphenhydrAMINE 50MG/ML VIAL IV PRN; +methylPREDNISolone 125MG 2ML VIAL IV PRN
[2023-09-13 14:50] VITALS: BP 121/75; O2SAT 97
[2023-09-13] MEDS: FERRIC CARBOXYMALTOSE INJ 750 MG in NS 250 ML (>50kg) IV ONE (14:52)
[2023-09-13 15:35] VITALS: BP 121/72; O2SAT 98
== END 2023-09-13 15:45 ==
LOC: M INFU 14:18
PROVIDERS: ATTEND Internal Medicine Hematology
DX: D50.9 Iron deficiency anemia, unspecified (principal); Z88.6 Allergy status to analgesic agent
CPT/HCPCS: 96365; J1439

== ENCOUNTER 2023-09-20 14:45 | Outpatient (CLI) | payer OTHER, MEDICAID ==
[~2023-09-20] VITALS: Ht 160 cm; Wt 91.0 kg
[2023-09-20 14:40] VITALS: BP 127/59; O2SAT 100
[~2023-09-20 14:45] MED LIST changes: -NS 1,000 ML IV SCH
[2023-09-20] MEDS: FERRIC CARBOXYMALTOSE INJ 750 MG in NS 250 ML (>50kg) IV ONE (14:53)
[2023-09-20] MEDS ORDERED: NS 1,000 ML IV SCH (15:00)
[2023-09-20 15:30] VITALS: BP 131/75; O2SAT 97
== END 2023-09-20 15:32 | disposition home or self-care (01) ==
LOC: M INFU 14:45
PROVIDERS: ATTEND Internal Medicine Hematology
DX: D50.9 Iron deficiency anemia, unspecified (principal); Z88.6 Allergy status to analgesic agent
CPT/HCPCS: 96365; J1439

== ENCOUNTER 2023-10-05 08:09 | Emergency (ER) | payer OTHER, MEDICAID ==
[~2023-10-05] VITALS: Ht 160 cm; Wt 97.1 kg
[~2023-10-05 08:09] MED LIST changes: -ALBUTEROL SULFATE 2.5MG/0.5ML INH NEB SOLN INH PRN; -EPINEPHrine INJ 1 MG/ML 1ML AMP IM PRN; -diphenhydrAMINE 50MG/ML VIAL IV PRN; -methylPREDNISolone 125MG 2ML VIAL IV PRN
[2023-10-05 08:10] VITALS: BP 107/61; TEMP 97.6; O2SAT 99
== END 2023-10-05 10:54 | disposition home or self-care (01) ==
LOC: M ED 08:09
DX: S60.221A Contusion of right hand, initial encounter (principal); S60.211A Contusion of right wrist, initial encounter; S16.1XXA Strain of muscle, fascia and tendon at neck level, initial encounter; S39.012A Strain of muscle, fascia and tendon of lower back, initial encounter; W10.8XXA Fall (on) (from) other stairs and steps, initial encounter; Y92.009 Unspecified place in unspecified non-institutional (private) residence as the place of occurrence of the external cause; Y93.9 Activity, unspecified; Y99.9 Unspecified external cause status; Z88.6 Allergy status to analgesic agent

== ENCOUNTER → 2024-01-21 | Outpatient (CLI) | payer OTHER, MEDICAID ==
[2024-01-21 08:07] LABS: PLATELET COUNT, AUTOMATED 210 10^3/uL (150-450)
[2024-01-21 08:19] LABS: INR 1.05; PARTIAL THROMBOPLASTIN TIME 28.6 SECONDS (24.8-34.2); PROTHROMBIN TIME 13.4 SECONDS (12.5-14.5)
== END ==
LOC: M LAB 07:34
PROVIDERS: ATTEND Physician Assistant
DX: Z01.818 Encounter for other preprocedural examination (principal)

== ENCOUNTER → 2024-04-23 | Outpatient (CLI) | payer OTHER, MEDICAID ==
[2024-04-23 12:32] LABS: BASO % 0.6 % (0.0-1.0); EOS # 0.2 10^3/uL (0.0-0.5); EOS % 2.7 % (0.0-3.0); HEMOGLOBIN 13.8 g/dl (12.0-15.5); LYMPH # 2.5 10^3/uL (1.5-5.0); LYMPH % 38.7 % (24.0-44.0); MEAN CORPUSCULAR HGB CONC 32.9 g/dl (32.0-36.5); MEAN CORPUSCULAR VOLUME 91.3 fl (80.0-96.0); MONO # 0.5 10^3/uL (0.0-0.8); MONO % 7.7 % (2.0-8.0); NEUTROPHILS # 3.2 10^3/uL (1.5-8.5); NEUTROPHILS % 50.1 % (36.0-66.0); PLATELET COUNT, AUTOMATED 236 10^3/uL (150-450); WHITE BLOOD COUNT 6.4 10^3/uL (4.0-10.0)
[2024-04-23 12:51] LABS: FERRITIN 92.2 NG/ML (7.3-270.7)
== END ==
LOC: M LAB 11:53
PROVIDERS: ATTEND Internal Medicine Hematology
DX: E61.1 Iron deficiency (principal)

== ENCOUNTER → 2024-11-21 | Outpatient (CLI) | payer OTHER, MEDICAID ==
[2024-11-21 13:09] LABS: PLATELET COUNT, AUTOMATED 252 10^3/uL (150-450)
[2024-11-21 13:23] LABS: ESTIMATED AVERAGE GLUCOSE 103.0 MG/DL (60-110)
[2024-11-21 13:41] LABS: CHOLESTEROL LEVEL 253.0 MG/DL (<200); CHOLESTEROL RISK RATIO 3.94 (<5); LDL CHOLESTEROL 144.2 MG/DL (<100); NON-HDL-C 188.8 MG/DL; TRIGLYCERIDES LEVEL 223.0 MG/DL (<150)
== END ==
LOC: M PLALAB 11:55
PROVIDERS: ATTEND Family Medicine
DX: K50.10 Crohn's disease of large intestine without complications (principal); E66.812 Obesity, class 2

== ENCOUNTER → 2024-11-21 | Outpatient (REF) | payer OTHER, MEDICAID ==
[2024-11-21 18:51] LABS: PLATELET COUNT, AUTOMATED 248 10^3/uL (150-450)
[2024-11-21 19:02] LABS: CHOLESTEROL LEVEL 253.0 MG/DL (<200); CHOLESTEROL RISK RATIO 3.91 (<5); LDL CHOLESTEROL 144.0 MG/DL (<100); NON-HDL-C 188.4 MG/DL; TRIGLYCERIDES LEVEL 222.0 MG/DL (<150)
[2024-11-21 19:12] LABS: ESTIMATED AVERAGE GLUCOSE 103.0 MG/DL (60-110)
== END ==
LOC: M SFHCPLAZ 11:35
PROVIDERS: ATTEND Family Medicine
DX: K50.10 Crohn's disease of large intestine without complications (principal); E66.812 Obesity, class 2